=== PATIENT | female | born 1945 | race Caucasian/White ===

== ENCOUNTER → 2023-11-25 10:35 | Outpatient (REF) | payer OTHER, SELFPAY | LOC: HWRAD 10:35 | PROVIDERS: ATTENDING PHYSICIAN Internal Medicine; FAMILY PHYSICIAN Family Medicine | DX: I65.23 Occlusion and stenosis of bilateral carotid arteries (principal) | CPT/HCPCS: 93880 ==

== ENCOUNTER → 2023-12-03 13:30 | Outpatient (REF) | payer OTHER, SELFPAY | LOC: DHCBC MAIN 13:30 | PROVIDERS: ATTENDING PHYSICIAN Internal Medicine; FAMILY PHYSICIAN Family Medicine | DX: I25.10 Atherosclerotic heart disease of native coronary artery without angina pectoris (principal); I34.0 Nonrheumatic mitral (valve) insufficiency; I36.1 Nonrheumatic tricuspid (valve) insufficiency; I35.1 Nonrheumatic aortic (valve) insufficiency | CPT/HCPCS: 93306 ==

== ENCOUNTER 2024-04-17 16:31 | Emergency (ER) | payer OTHER, SELFPAY ==
[2024-04-17 16:38] VITALS: BP 194/97
[2024-04-17 17:33] VITALS: BMI 26.0
--- NOTE | 2024-04-17 17:33 | ED.MUSCINJ ---
HPI-Injury
General
Chief Complaint: Musculo-Skeletal Complaint
Source: patient
Exam Limitations: none
Time Seen by Provider: 04/17/24 17:17
Nursing documentation reviewed up to this point in time: agreed with
History of Present Illness-Injury
Initial Injury comments:
78 yo female from home 2 hours ago went to get out of bed, leaned on her left arm and felt sudden severe pain in left shoulder. Unable to lift the arm due to pain since. No recollection of overuse or recent injury.
Hx afib on Eliquis. NIDDM on Metformin
Past History
Past History
ED Past Medical History: Arrthythmia (afib on Eliquis), CAD, Cancer (Left breast), CHF, HTN, Hypercholesterolemia, NIDDM and Other (Pneumonia)
ED Past Surgical History: Cardiac, Cholecystectomy and Gynecological (L mastectomy)
Social History
Tobacco: Former smoker
Alcohol: Occasional
Personal:
Living: with family
Family History
Family History: CAD
Review of Systems
Review of Systems
Allergies reviewed?: Yes
All Other Systems: ROS reviewed and negative except as documented in HPI and ROS
Musculoskeletal: Reports other (pain left shoulder)
Skin: Reports no symptoms
Neurological: Denies weakness or numbness
Phy Exam
Physical Exam
Physical Exam:
GENERAL: No acute distress. A&Ox3.
CONSTITUTIONAL: Afebrile.
RESPIRATORY: Regular respirations, nonlabored, lungs clear.
CARDIOVASCULAR: Regular rate and rhythm, no murmurs, no rubs.
GI: Soft, nontender
MUSCULOSKELETAL: Neck, clavicle, distal left arm non tender. Tender to palpate over humeral head with mild swelling here. Significantly limited ROM due to pain. Distal N/V intact. Well perfused.
SKIN: Warm, dry, pink
PSYCH: Normal mood and affect. Well kept, interactive and appropriate
NEUROLOGIC: Awake, alert and oriented. No focal neurological deficits
Injury Course
Orders/Labs/Results
Orders:
Orders
04/17/24 17:24
Shoulder, Left, Trauma CR [CR Shoulder, Trauma - Left] Urgent
Comment:
Reason For Exam: pain no trauma
04/17/24 18:14
Sling Left-Treatment ONCE
04/17/24 18:22
Acetaminophen [Tylenol] 1,000 mg PO NOW STA
04/17/24 17:58
04/17/24 17:58
MDM/Problems Addressed
Differential Diagnosis Includes:
shoulder bursitis, osteoarthritis, sprain, fracture
MDM/Problems Addressed:
78 yo female from home 2 hours ago went to get out of bed, leaned on her left arm and felt sudden severe pain in left shoulder. Unable to lift the arm due to pain since. No recollection of overuse or recent injury.
Hx afib on Eliquis. NIDDM on Metformin
Xray left shoulder: Radiology report read: Acute transverse fracture of the surgical neck of the humerus with 1 mm lateral distraction 3 mm medial impaction of the distal fracture fragment
On Eliquis: no significant swelling or ecchymosis.
Sling applied, distal n/v intact.
Referred to orthopedics
*Critical Care Note
Total Time (30-74mins, 75-104mins- exclusive of procedures): Not Applicable
ED Attending Note
-
Portions of this chart may have been created with voice recognition software.� Occasional wrong word or��sound alike� substitutions may have occurred due to the inherent limitations of voice recognition software.
Discharge Plan
Departure
Patient Disposition: Home (Routine Discharge)
Date of Disposition: 04/17/24
Time of Disposition: 18:22
Patient with high blood pressure during this ER visit?: No
Condition: Good
Discharge Problem:
Closed fracture of left proximal humerus
Instructions: Upper Arm Fracture, How to Use a Shoulder Sling, Using Cold for Pain
Prescriptions:
No Action
nitroglycerin 0.4 MG tablet, sublingual
0.4 mg sublingual Q5M PRN (Reason: CHEST PAIN)
aspirin 81 MG tablet,chewable
81 mg PO DAILY Qty: 30 0RF
Rx Instructions:
One tab by mouth once daily.
metformin 500 MG tablet
500 mg PO HS
cetirizine 10 MG tablet
10 mg PO DAILY PRN (Reason: allergies)
acetaminophen [Tylenol Arthritis] 650 MG tablet extended release
650 mg PO Q8H PRN (Reason: pain)
atorvastatin 40 MG tablet
20 mg PO HS
metoprolol succinate 100 MG tablet extended release 24 hr
100 mg PO Q12H
Eliquis 5 MG tablet
5 mg PO Q12H
Referrals:
Pawan Salinas MD [Active] - Call in 1-3 days for appt
Kathrine Vogt MD [Family Provider] -
Activity Restrictions/Additional Instructions:
As we discussed, you fractured your upper arm. Keep the sling on until you see the orthopedic doctor.
Tylenol 1000 mg every 6 hours up to 3 times a day as needed for pain.
Call the orthopedic doctor's office Thursday a.m. and make next available appointment for 'fracture of proximal humerus.'
Interventions
Interventions:
*Risk Screen - Suicide Last Done: 04/17/24 19:35
*Neglect/Abuse Screening Last Done: 04/17/24 19:35
*Nursing Disposition Last Done: 04/17/24 19:35
ED-Musculoskeletal Assessment Last Done: 04/17/24 17:33
Discharge Date and Time
Discharge Date/Time: 04/17/24 19:36
Print Language: INDONESIAN
[2024-04-17] MEDS: TYLENOL 1000 MG PO (18:58)
[2024-04-17 19:21] VITALS: BP 130/91
== END 2024-04-17 19:36 | disposition home or self-care (01) ==
LOC: EMR 16:31
PROVIDERS: EMERGENCY PHYSICIAN Emergency Medicine; FAMILY PHYSICIAN Family Medicine
DX: S42.202A Unspecified fracture of upper end of left humerus, initial encounter for closed fracture (principal); X58.XXXA Exposure to other specified factors, initial encounter; I48.91 Unspecified atrial fibrillation; I25.10 Atherosclerotic heart disease of native coronary artery without angina pectoris; I11.0 Hypertensive heart disease with heart failure; I50.9 Heart failure, unspecified; E78.00 Pure hypercholesterolemia, unspecified; E11.9 Type 2 diabetes mellitus without complications; Z79.01 Long term (current) use of anticoagulants; Z82.49 Family history of ischemic heart disease and other diseases of the circulatory system; Z87.891 Personal history of nicotine dependence; Z90.12 Acquired absence of left breast and nipple; Z90.49 Acquired absence of other specified parts of digestive tract
CPT/HCPCS: 99283; 73030

== ENCOUNTER → 2024-05-20 13:20 | Outpatient (REF) | payer OTHER, SELFPAY | LOC: PAVMRI 13:20 | PROVIDERS: ATTENDING PHYSICIAN Orthopaedic Surgery; FAMILY PHYSICIAN Family Medicine | DX: S42.292A Other displaced fracture of upper end of left humerus, initial encounter for closed fracture (principal) | CPT/HCPCS: 73221 ==

== ENCOUNTER 2024-08-01 17:37 | Inpatient (IN) | payer OTHER, SELFPAY ==
[2024-08-01] VITALS (9 sets, daily range): BP systolic 96–133; BP diastolic 57–104; BMI 26.8; BMI 27.7
--- NOTE | 2024-08-01 11:54 | ED.GENMED ---
ED Provider Triage
<Mary Ann Deal, WARP PREPARER - Last Filed: 08/01/24 12:00>
-
Patient seen by provider in Triage?: Seen in Triage
Attestation: A medical screening examination has been initiated by a qualified medical provider. Based on the assessment performed at this time, it has been determined that an emergent medical condition may exist and the patient has been informed
that further medical evaluation and possible additional diagnostic testing may be needed.
HPI: 79-year-old female w h/o dementia, presents from home with nancy states she's sleeping more than usual, she's awful weak, she can't catch her breath, not eating much.
Denies chest pain or trouble breathing. stating trouble breathing yes please make sure
GENERAL: Alert , in no apparent distress
EYE: No visual abnormalities.
NECK: Trachea midline
ENT: No visible abnormalities.
LUNGS: No acute respiratory distress
NEUROLOGICAL: Alert and oriented
SKIN: Skin intact. No visible changes.
MUSCULOSKELETAL: Moving extremities normally
PSYCH: Normal and appropriate interaction.
This is a medical evaluation conducted in person to initiate diagnostic evaluation and provide initial therapeutics. Please see further documentation by the treating clinician.
History of Present Illness
<Mary Ann Deal, WARP PREPARER - Last Filed: 08/01/24 12:00>
General
Chief Complaint: Breathing Problem
Time Seen by Provider: 08/01/24 13:27
<Juvenal Pang DO - Last Filed: 08/01/24 20:36>
General
Source: patient, spouse and family
Exam Limitations: none
Nursing documentation reviewed up to this point in time: agreed with
History of Present Illness
History of Present Illness:
79-year-old female presents emergency department due to shortness of breath ongoing for 1 week. Patient denies any chest pain or discomfort. She denies any weight gain. She has been taking her Eliquis. Denies any bleeding.
Past History
<Mary Ann Deal, WARP PREPARER - Last Filed: 08/01/24 12:00>
Past History
ED Past Medical History: Arrthythmia (afib on Eliquis), CAD, Cancer (Left breast), CHF, HTN, Hypercholesterolemia, NIDDM and Other (Pneumonia)
ED Past Surgical History: Cardiac, Cholecystectomy and Gynecological (L mastectomy)
Social History
Tobacco: Former smoker
Alcohol: Occasional
Personal:
Living: with family
Family History
Family History: CAD
Review of Systems
<Juvenal Pang, DO - Last Filed: 08/01/24 20:36>
Review of Systems
Allergies reviewed?: Yes
All Other Systems: Not applicable
Constitutional: Denies fever
EENT: Reports no symptoms
Respiratory: Reports trouble breathing
Cardiac: Reports no symptoms
ABD/GI: Reports no symptoms
: Reports no symptoms
Musculoskeletal: Reports no symptoms
Skin: Reports no symptoms
Neurological: Reports weakness
Endocrine: Reports no symptoms
Hematologic/Lymphatic: Reports no symptoms
Psychiatric: Reports no symptoms
Phy Exam
<Juvenal Pang, DO - Last Filed: 08/01/24 20:36>
Physical Exam
Physical Exam:
Physical Exam
General: Chronic ill appearance
Neck: supple. no meningeal signs. normal posterior pharynx
Heart: s1/s2 tachycardia, irregular rhythm, no murmur. equal radial
pulses.
HEENT: Pupils equal round reactive to light, EOMI
Lungs: no acute respiratory distress. clear bilaterally
Abdomen: normal bowel sounds. not tender. no CVAT
Neuro: alert and oriented. no focal neurological deficits cranial nerves II through XII intact
Skin: no rash
Psychiatric: well kept. interactive and cooperative
Extremities: no edema. no calf tenderness. negative homans. good distal pulses
Scores
<Juvenal Pang, DO - Last Filed: 08/01/24 20:36>
Heart Failure Risk
Heart Failure Risk Score: Yes
History of Stroke or TIA: No
History of intubation for respiratory distress: No
Heart rate on ED arrival >/= 110: Yes
SaO2 <90% on arrival on room air: No
HR >/=110 during 3min walk test (or too ill to perform test): Yes
ECG has acute ischemic changes: No
Urea >/=12mmol/L (BUN 33.6mg/dL): Yes
Serum CO2>/=35mmol/L: No
Troponin I or T elevated to [place] Level (0.4mg/dL): No
NT-proBNP >/=5,000ng/L (5,000pg/ml): Yes
HF Risk Score: 4
Admission Status: HIGH RISK 26.1% Consider SNF treatment or admission to hospital
Course
<Mary Ann Deal, WARP PREPARER - Last Filed: 08/01/24 12:00>
Orders/Labs/Results
Orders:
Orders
08/01/24 11:35
ECG [Electrocardiogram (*1)] Urgent
Reason for Study: Tachycardia
EKG- Treatment ONCE
08/01/24 12:00
CR Chest - 2 Views Urgent
Comment:
Reason For Exam: SOB, weaknes
08/01/24 12:28
Complete Blood Count/With Diff Urgent
Comprehensive Metabolic Panel Urgent
Magnesium Urgent
Comment: MG ADDED ON BY FKLOOR 2:50PM 08-01-24
NT-proBNP Urgent
Troponin I Urgent
08/01/24 12:29
PT/INR [Prothrombin Time] Urgent
PTT Urgent
08/01/24 13:50
Cardiac Monitoring- Treatment ONCE
Dextrose 50%-Water [Dextrose 50% Syringe] 25 grams IV NOW STA
Insulin Human Regular [Novolin R] 3 units IV NOW STA
08/01/24 13:53
Bedside Glucose PRE IV Insulin- HyperK+ NOW
08/01/24 14:09
Venous Blood Gas Urgent
%Oxygen/Room Air: 100/RA
08/01/24 Dinner
1800 calorie (15 carb) Diabetic
At Your Request: Full Participation
08/01/24 15:23
Bedside Glucose POST IV Insulin- HyperK+ Q1HX2,Q2HX2
08/01/24 15:44
Sodium Bicarbonate 50 meq IV NOW STA
08/01/24 16:00
Glucose Urgent
Potassium Urgent
Comment: draw 2 hours after regular insulin IV administration
08/01/24 16:28
Bladder Scan As Directed
Follow Bladder Retention/Intermittent Cath Algorithm?: No
08/01/24 16:33
Urinalysis Reflex To Culture Urgent
08/01/24 16:38
Admit/Transfer Patient As Directed
Co-Sign Provider:
Level of Care: Inpatient admission
Assign to:: IMU- Intermediate Care
Physician / Group: Arnoldo
Diagnosis: Metabolic acidosis
Patient Condition: Fair
Reason for Hospitalization: Metabolic acidosis
Expected length of stay greater than two midnights?: Yes
ELOS- Estimated Length of Stay in days: 3
I certify the patient meets the requirements for IP care: Yes
08/01/24 16:41
Acetaminophen Urgent
B-Hydroxybutyrate Urgent
BMP [Basic Metabolic Panel] Urgent
CPK [Creatine Phosphokinase] Urgent
Lactate Level [Lactic Acid] Urgent
Salicylate Urgent
Troponin I Urgent
Insulin Human Regular [Novolin R] 10 units IV NOW STA
08/01/24 16:56
NEPHROLOGY CONSULT Urgent
Consulting Provider: Amadou De Guzman
Was physician already notified: Yes
Reason for consult: metabolic acidosis
08/01/24 17:00
Dextrose 5%/Water 1000 ml [D5w] 1,000 ml Sodium Bicarbonate 150 meq IV 200 mls/hr
08/01/24 17:01
Urine Creatinine Urgent
Urine Sodium Urgent
08/01/24 17:02
Urine Protein/Creat Ratio (Random) [Protein/Creat Ratio (Random)] Urgent
08/01/24 17:57
Dextrose 50%-Water [Dextrose 50% Syringe] 12.5 grams IV [id number] PRN
Dextrose 50%-Water [Dextrose 50% Syringe] 12.5 grams IV [id number] PRN
Diltiazem HCl [Cardizem] 5 mg IV Q6HPRN PRN
Glucagon [GlucaGen] 1 mg IM PRN PRN
Glucagon [GlucaGen] 1 mg IM PRN PRN
08/01/24 17:57
CARDIOLOGY CONSULT Routine
Consulting Provider: Erlin Crandall
Was physician already notified: Yes
NEPHROLOGY CONSULT Routine
Consulting Provider: Amadou De Guzman
Was physician already notified: Yes
Reason for consult: metabolic acidosis
Bedside Glucose Monitoring As Directed
Frequency: AC&HS
Additional Instructions:: Change to q6h if pt on TPN, tube feeding or not eating
Sequential Compression Device [Pneumatic Compression Sleeves] As Directed
Type: Knee high
DX Deep Vein Thrombosis Video Routine
08/02/24 06:00
Glycohemoglobin (HgbA1c) IN AM
Hepatitis A Antibody, Total IN AM
Hepatitis B Core Ab, IgM IN AM
Hepatitis B Core Ab, Total IN AM
Hepatitis B Surface Antibody IN AM
Hepatitis B Surface Antigen IN AM
Hepatitis C Antibody IN AM
08/02/24 07:30
Insulin Aspart Corrective Low [Novolog Flexpen-Low Resistance] See Protocol SC AC
Insulin Aspart Corrective Mod [Novolog Flexpen-Moderate Resistance] See Protocol SC AC
Abnormal Lab Results
08/01/24 08/01/24 08/01/24
12:28 12:29 13:59
RBC 3.89 L 10^6/uL
(4.20-5.40)
MCV 105.7 H fL
(81.0-99.0)
MCH 31.9 H pg
(27.0-31.0)
MCHC 30.2 L g/dL
(33.0-37.0)
RDW 15.8 H %
(11.5-14.5)
MPV 10.9 H fL
(7.4-10.4)
Absolute Lymphs (auto) 0.9 L 10^3/uL
(1.2-3.4)
Neutrophils % 78.7 H %
(42.2-75.2)
Lymphocytes % 13.5 L %
(20.5-51.1)
PT 51.9 H Sec
(11.4-14.6)
INR 5.92 H*
APTT 46.9 H Sec
(23.4-35.0)
VBG pH
VBG HCO3
Potassium 6.4 H* mmol/L
(3.5-5.1)
Chloride 109 H mmol/L
(98-107)
Carbon Dioxide 8 L* mmol/L
(22-30)
BUN 72 H mg/dl
(7-17)
Creatinine 2.9 H mg/dL
(0.6-1.0)
Glucose 214 H mg/dl
(70-99)
Lactic Acid
Magnesium 2.4 H mg/dl
(1.6-2.3)
Total Bilirubin 2.1 H mg/dl
(0.2-1.3)
AST 81 H U/L
(14-36)
ALT 74 H U/L
(0-35)
Alkaline Phosphatase 198 H U/L
(38-126)
Salicylates
Acetaminophen
POC Glucose 183 H mg/dl
(70-99)
08/01/24 08/01/24 08/01/24
14:09 14:54 16:00
RBC
MCV
MCH
MCHC
RDW
MPV
Absolute Lymphs (auto)
Neutrophils %
Lymphocytes %
PT
INR
APTT
VBG pH 7.09 L*
(7.32-7.43)
VBG HCO3 10.6 L mmol/L
(22-27)
Potassium 6.0 H mmol/L
(3.5-5.1)
Chloride
Carbon Dioxide
BUN
Creatinine
Glucose 225 H mg/dl
(70-99)
Lactic Acid
Magnesium
Total Bilirubin
AST
ALT
Alkaline Phosphatase
Salicylates
Acetaminophen
POC Glucose 227 H mg/dl
(70-99)
08/01/24
16:41
RBC
MCV
MCH
MCHC
RDW
MPV
Absolute Lymphs (auto)
Neutrophils %
Lymphocytes %
PT
INR
APTT
VBG pH
VBG HCO3
Potassium 5.9 H mmol/L
(3.5-5.1)
Chloride 109 H mmol/L
(98-107)
Carbon Dioxide 11 L* mmol/L
(22-30)
BUN 74 H mg/dl
(7-17)
Creatinine 2.9 H mg/dL
(0.6-1.0)
Glucose 211 H mg/dl
(70-99)
Lactic Acid 7.4 H* mmol/L
(0.7-2.0)
Magnesium
Total Bilirubin
AST
ALT
Alkaline Phosphatase
Salicylates < 1.0 L mg/dl
(2.0-20.0)
Acetaminophen < 10 L ug/ml
(10-30)
POC Glucose
08/01/24 12:28
08/01/24 16:41
Vital Signs
Initial and Last Documented VS:
Initial Vital Signs
Pulse Resp BP Pulse Ox
134 18 125/80 100
08/01/24 11:33 08/01/24 11:33 08/01/24 11:33 08/01/24 11:33
Last Documented Vital Signs
Temp Pulse Resp BP Pulse Ox
97.4 F 134 23 120/68 100
08/01/24 20:02 08/01/24 19:00 08/01/24 19:00 08/01/24 19:00 08/01/24 11:33
<Juvenal Pang, DO - Last Filed: 08/01/24 20:36>
Orders/Labs/Results
Orders:
Orders
08/01/24 11:35
ECG [Electrocardiogram (*1)] Urgent
Reason for Study: Tachycardia
EKG- Treatment ONCE
08/01/24 12:00
CR Chest - 2 Views Urgent
Comment:
Reason For Exam: SOB, weaknes
08/01/24 12:28
Complete Blood Count/With Diff Urgent
Comprehensive Metabolic Panel Urgent
Magnesium Urgent
Comment: MG ADDED ON BY FKLOOR 2:50PM 08-01-24
NT-proBNP Urgent
Troponin I Urgent
08/01/24 12:29
PT/INR [Prothrombin Time] Urgent
PTT Urgent
08/01/24 13:50
Cardiac Monitoring- Treatment ONCE
Dextrose 50%-Water [Dextrose 50% Syringe] 25 grams IV NOW STA
Insulin Human Regular [Novolin R] 3 units IV NOW STA
08/01/24 13:53
Bedside Glucose PRE IV Insulin- HyperK+ NOW
08/01/24 14:09
Venous Blood Gas Urgent
%Oxygen/Room Air: 100/RA
08/01/24 Dinner
1800 calorie (15 carb) Diabetic
At Your Request: Full Participation
08/01/24 15:23
Bedside Glucose POST IV Insulin- HyperK+ Q1HX2,Q2HX2
08/01/24 15:44
Sodium Bicarbonate 50 meq IV NOW STA
08/01/24 16:00
Glucose Urgent
Potassium Urgent
Comment: draw 2 hours after regular insulin IV administration
08/01/24 16:28
Bladder Scan As Directed
Follow Bladder Retention/Intermittent Cath Algorithm?: No
08/01/24 16:33
Urinalysis Reflex To Culture Urgent
08/01/24 16:38
Admit/Transfer Patient As Directed
Co-Sign Provider:
Level of Care: Inpatient admission
Assign to:: IMU- Intermediate Care
Physician / Group: Arnoldo
Diagnosis: Metabolic acidosis
Patient Condition: Fair
Reason for Hospitalization: Metabolic acidosis
Expected length of stay greater than two midnights?: Yes
ELOS- Estimated Length of Stay in days: 3
I certify the patient meets the requirements for IP care: Yes
08/01/24 16:41
Acetaminophen Urgent
B-Hydroxybutyrate Urgent
BMP [Basic Metabolic Panel] Urgent
CPK [Creatine Phosphokinase] Urgent
Lactate Level [Lactic Acid] Urgent
Salicylate Urgent
Troponin I Urgent
Insulin Human Regular [Novolin R] 10 units IV NOW STA
08/01/24 16:56
NEPHROLOGY CONSULT Urgent
Consulting Provider: Amadou De Guzman
Was physician already notified: Yes
Reason for consult: metabolic acidosis
08/01/24 17:00
Dextrose 5%/Water 1000 ml [D5w] 1,000 ml Sodium Bicarbonate 150 meq IV 200 mls/hr
08/01/24 17:01
Urine Creatinine Urgent
Urine Sodium Urgent
08/01/24 17:02
Urine Protein/Creat Ratio (Random) [Protein/Creat Ratio (Random)] Urgent
08/01/24 17:57
Dextrose 50%-Water [Dextrose 50% Syringe] 12.5 grams IV [id number] PRN
Dextrose 50%-Water [Dextrose 50% Syringe] 12.5 grams IV [id number] PRN
Diltiazem HCl [Cardizem] 5 mg IV Q6HPRN PRN
Glucagon [GlucaGen] 1 mg IM PRN PRN
Glucagon [GlucaGen] 1 mg IM PRN PRN
08/01/24 17:57
CARDIOLOGY CONSULT Routine
Consulting Provider: Erlin Crandall
Was physician already notified: Yes
NEPHROLOGY CONSULT Routine
Consulting Provider: Amadou De Guzman
Was physician already notified: Yes
Reason for consult: metabolic acidosis
Bedside Glucose Monitoring As Directed
Frequency: AC&HS
Additional Instructions:: Change to q6h if pt on TPN, tube feeding or not eating
Sequential Compression Device [Pneumatic Compression Sleeves] As Directed
Type: Knee high
DX Deep Vein Thrombosis Video Routine
08/02/24 06:00
Glycohemoglobin (HgbA1c) IN AM
Hepatitis A Antibody, Total IN AM
Hepatitis B Core Ab, IgM IN AM
Hepatitis B Core Ab, Total IN AM
Hepatitis B Surface Antibody IN AM
Hepatitis B Surface Antigen IN AM
Hepatitis C Antibody IN AM
08/02/24 07:30
Insulin Aspart Corrective Low [Novolog Flexpen-Low Resistance] See Protocol SC AC
Insulin Aspart Corrective Mod [Novolog Flexpen-Moderate Resistance] See Protocol SC AC
Abnormal Lab Results
08/01/24 08/01/24 08/01/24
12:28 12:29 13:59
RBC 3.89 L 10^6/uL
(4.20-5.40)
MCV 105.7 H fL
(81.0-99.0)
MCH 31.9 H pg
(27.0-31.0)
MCHC 30.2 L g/dL
(33.0-37.0)
RDW 15.8 H %
(11.5-14.5)
MPV 10.9 H fL
(7.4-10.4)
Absolute Lymphs (auto) 0.9 L 10^3/uL
(1.2-3.4)
Neutrophils % 78.7 H %
(42.2-75.2)
Lymphocytes % 13.5 L %
(20.5-51.1)
PT 51.9 H Sec
(11.4-14.6)
INR 5.92 H*
APTT 46.9 H Sec
(23.4-35.0)
VBG pH
VBG HCO3
Potassium 6.4 H* mmol/L
(3.5-5.1)
Chloride 109 H mmol/L
(98-107)
Carbon Dioxide 8 L* mmol/L
(22-30)
BUN 72 H mg/dl
(7-17)
Creatinine 2.9 H mg/dL
(0.6-1.0)
Glucose 214 H mg/dl
(70-99)
Lactic Acid
Magnesium 2.4 H mg/dl
(1.6-2.3)
Total Bilirubin 2.1 H mg/dl
(0.2-1.3)
AST 81 H U/L
(14-36)
ALT 74 H U/L
(0-35)
Alkaline Phosphatase 198 H U/L
(38-126)
Salicylates
Acetaminophen
POC Glucose 183 H mg/dl
(70-99)
24 24 08/01/24
14:09 14:54 16:00
RBC
MCV
MCH
MCHC
RDW
MPV
Absolute Lymphs (auto)
Neutrophils %
Lymphocytes %
PT
INR
APTT
VBG pH 7.09 L*
(7.32-7.43)
VBG HCO3 10.6 L mmol/L
(22-27)
Potassium 6.0 H mmol/L
(3.5-5.1)
Chloride
Carbon Dioxide
BUN
Creatinine
Glucose 225 H mg/dl
(70-99)
Lactic Acid
Magnesium
Total Bilirubin
AST
ALT
Alkaline Phosphatase
Salicylates
Acetaminophen
POC Glucose 227 H mg/dl
(70-99)
24
16:41
RBC
MCV
MCH
MCHC
RDW
MPV
Absolute Lymphs (auto)
Neutrophils %
Lymphocytes %
PT
INR
APTT
VBG pH
VBG HCO3
Potassium 5.9 H mmol/L
(3.5-5.1)
Chloride 109 H mmol/L
(98-107)
Carbon Dioxide 11 L* mmol/L
(22-30)
BUN 74 H mg/dl
(7-17)
Creatinine 2.9 H mg/dL
(0.6-1.0)
Glucose 211 H mg/dl
(70-99)
Lactic Acid 7.4 H* mmol/L
(0.7-2.0)
Magnesium
Total Bilirubin
AST
ALT
Alkaline Phosphatase
Salicylates < 1.0 L mg/dl
(2.0-20.0)
Acetaminophen < 10 L ug/ml
(10-30)
POC Glucose
08/01/24 12:28
08/01/24 16:41
Vital Signs
Initial and Last Documented VS:
Initial Vital Signs
Pulse Resp BP Pulse Ox
134 18 125/80 100
08/01/24 11:33 08/01/24 11:33 08/01/24 11:33 08/01/24 11:33
Last Documented Vital Signs
Temp Pulse Resp BP Pulse Ox
97.4 F 134 23 120/68 100
08/01/24 20:02 08/01/24 19:00 08/01/24 19:00 08/01/24 19:00 08/01/24 11:33
<Juvenal Pang, DO - Last Filed: 08/01/24 20:36>
MDM/Problems Addressed
Differential Diagnosis Includes:
Acute renal failure, hyperkalemia, CHF
MDM/Problems Addressed:
79-year-old female with acute renal failure, hyperkalemia, CHF exacerbation, metabolic acidosis, rapid atrial fibrillation. IV insulin ordered. Will withhold antidysrhythmic medication, and withhold Lasix at this time due to mild hypotension.
Admit to hospitalist.
Chronic conditions affecting care: HTN, CAD, Cardiomyopathy and Arrhythmia
Acute Exacerbation and/or Progression of Chronic Illness: HTN, CAD, Cardiomyopathy and Arrhythmia
<Juvenal Pang, DO - Last Filed: 08/01/24 20:36>
*Radiology
Radiology exam reviewed: preliminary read by ED provider (Chest x-ray shows increased interstitial markings)
*Pulse Oximetry
Patient hypoxic: no
*EKG
Interpreted by ED Provider?: Yes
EKG Intrepretation Date: 08/01/24
EKG Intrepretation Time: 11:39
Interpretation: abnormal
Comparison EKG: changes noted
Heart Rate: 125
Rate: tachycardiac
Rhythm: a-fib
Branch: normal axis
Interval: normal interval
QRS Pattern: normal QRS
Ischemia: non-specific ST changes
*Control Clerk Head Interpretation
Rate: tachycardiac
Interpretation: abnormal
Heart Rate: 120
Rhythm: a-fib
*Critical Care Note
Total Time (30-74mins, 75-104mins- exclusive of procedures): 30
comment:
Critical care statement: A total of 30 minutes of critical care time was provided for this patient. This includes management of unstable vital signs, evaluation of the patient at bedside, reviewing the patient's pertinent medical records, discussion
with consultants, review of old EKGs and review of pertinent medical records. This time with separate from time utilized to perform the aforementioned documented procedures
Data Reviewed
Review of Other/Old Records Reveals: Labs (K equals 4.8 on 03/15/2021, creatinine equals 1.2 on 03/15/2021)
Source: records
Further Testing Considered But Not Given:
CT chest considered, not indicated
<Juvenal Pang DO - Last Filed: 08/01/24 20:36>
Patient Management
Social determinants of health affecting care: Living situation and Strong social support
Discussion with other providers: Hospitalist
Escalation/DeEscalation of care consider admission/obs:
Admit indicated
ED Attending Note
<Mary Ann Deal NP - Last Filed: 08/01/24 12:00>
-
Portions of this chart may have been created with voice recognition software.� Occasional wrong word or��sound alike� substitutions may have occurred due to the inherent limitations of voice recognition software.
Discharge Plan
Departure
Patient Disposition: Admit
Date of Disposition: 08/01/24
Time of Disposition: 13:57
Admit to: IMU
Presentation/result/management discussed w/ accepting MD/DO: Hospitalist
Patient with high blood pressure during this ER visit?: No
Condition: Fair
Discharge Problem:
Acute kidney failure, unspecified, Atrial fibrillation with rapid ventricular response, Acute hyperkalemia, Metabolic acidosis
Interventions
Interventions:
*Risk Screen - Suicide Last Done: 08/01/24 12:24
*General Assessment Last Done: 08/01/24 12:24
*Neglect/Abuse Screening Last Done: 08/01/24 12:24
ED- Fall Risk Assessment Last Done: 08/01/24 13:03
*ED COVID-19 Vaccine History Last Done: 08/01/24 12:24
*Nursing Disposition Last Done: 08/01/24 19:31
ED- Cardiac Assessment Last Done: 08/01/24 12:24
ED- Pulmonary Assessment Last Done: 08/01/24 12:24
Discharge Date and Time
Discharge Date/Time: 08/01/24 19:41
[2024-08-01 12:44] LABS: % Basophils 0.2 % (0-2); % Eosinophils 0.2 % (0-6); % Immature Granulocytes 0.3 % (0-0.5); % Lymphocytes 13.5 % (20.5-51.1); % Monocytes 7.1 % (1.7-9.3); % Neutrophils 78.7 % (42.2-75.2); Absolute Lymphocytes 0.9 10^3/uL (1.2-3.4); Absolute Monocytes 0.5 10^3/uL (0.1-0.6); Absolute Neutrophils 5.2 10^3/uL (1.4-6.5); Hematocrit 41.1 % (37.0-47.0); Hemoglobin 12.4 g/dL (12.0-16.0); Mean Corp Hgb Conc. 30.2 g/dL (33.0-37.0); Mean Corpuscular Hgb 31.9 pg (27.0-31.0); Mean Corpuscular Volume 105.7 fL (81.0-99.0); Mean Platelet Volume 10.9 fL (7.4-10.4); Nucleated Red Blood Cells % 0.3 %; Platelet Count 242 10^3/uL (130-400); Red Blood Cell Count 3.89 10^6/uL (4.20-5.40); Red Cell Dist. Width 15.8 % (11.5-14.5); White Blood Cell Count 6.6 10^3/uL (4.8-10.8)
[2024-08-01 13:01] LABS: APTT 46.9 Sec (23.4-35.0); PT 51.9 Sec (11.4-14.6)
[2024-08-01 13:05] LABS: INR 5.92
[2024-08-01 13:10] LABS: NT-proBNP 14100 pg/ml; Troponin I 0.019 ng/ml
[2024-08-01 13:21] LABS: ALT (SGPT) 74 U/L (0-35); AST (SGOT) 81 U/L (14-36); Albumin 4.6 g/dl (3.5-5.0); Alkaline Phosphatase 198 U/L (38-126); Blood Urea Nitrogen 72 mg/dl (7-17); Calcium 9.9 mg/dl (8.4-10.2); Carbon Dioxide 8 mmol/L (22-30); Chloride 109 mmol/L (98-107); Estimated Creatinine Clearance 13 ml/min; Glucose 214 mg/dl (70-99); Potassium 6.4 mmol/L (3.5-5.1); Sodium 141 mmol/L (135-145); Total Bilirubin 2.1 mg/dl (0.2-1.3); Total Protein 6.9 g/dl (6.3-8.2); eGFR 15.77
[2024-08-01 14:01] LABS: Glucose - Point of Care 183 mg/dl (70-99)
[2024-08-01] MEDS: DEXTROSE 50% SYRINGE 25 GRAMS IV ×2 (14:03→22:34)
[2024-08-01] MEDS: NOVOLIN R 3 UNITS IV (14:03)
--- NOTE | 2024-08-01 14:13 | HPS.HSE ---
Addendum entered and electronically signed by Abhijit Mclaughlin MD 08/01/24 22:59:
Attending Addendum-
I performed a history and physical exam of the patient and discussed his management with the resident. I reviewed the resident's note and agree with the documented findings and plan of care CC/HPI- patient presents with one week of poor appetite
fatigue and SOB. 'I feel fine.' Seen with and daughter present. Full 12 point ROS reviewed and negative except as documented Exam- vitals reviewed in EMR GEN-NAD pale b/l scleral icterus heart irreg irreg tachy no rub lungs CTA B/L abd soft
LE trace edema
Plan:
# Severe AGMA
- admit to IMU
- VBG- AG , CO2 22-26 expected actual 35
- start bicarb gtt stat
- check LA, beta hydroxy-STAT
- c/s nephro
- check Tylenol level, salicylate, CPK
- possibly induced by MATY and metformin- hold metformin
# MATY on CKD 3b
- baseline @ 1.3
- check FENA
- renal and bladder US
- check UA
- start IVF
# Hyperkalemia
- from MATY
- insulin stat
- repeat BMP q 4
# Transaminitis
- check RUQ u/s
- trend
- hold statin check tylenol
# A fib with RVR
- cards c/s
- t/c start Cardizem gtt
- hold eliquis
- check ECHO
# Elevated INR
- liver disease?
- unclear etiology
- repeat in am
- vit k deficiency?
- check RUQ US
# Macrocytosis
- check vit b12 and folate TSH
# DM
- start SSI
- hold metformin
# CAD s/p CABG x 5 2000
# CS s/p CEA 2002
CODE DNR
Dispo lives with alone
Patient consented to discuss, was with and daughter, time spent explanation of advance directives, changes in health status, patient�s health care wishes if the patient becomes unable to make health decisions, goals of care, code status, and
prognosis- 16 minutes
Due to a high probability of clinically significant, life-threatening deterioration, the patient required a high level of preparedness to intervene emergently. I personally spent this critical care time directly and personally managing the patient.
This critical care time included obtaining a history; examining the patient; ordering and review of studies and STAT labs; arranging urgent treatment with development of a management plan; evaluation of patient's response to treatment; reassessment;
and, discussions with family and other providers.
This critical care time was performed to assess and manage the high probability of imminent, life-threatening deterioration that could result in multi-organ failure. Total time documented is exclusive of any additional time listed that was spent in
advance care planning discussion and separately billable procedures and treating other patients and teaching time.
Total critical care time: Approximately 40 minutes
Original Note:
Family Physician
-
Family Physician: Kathrine Vogt
Chief Complaint
-
Dyspnea
History of Present Illness
Ms. Natalya Guillory is an 79yoF pmh HFrEF (EF 40%), afib on eliquis, CAD, HTN, HLD, NIDDM being admitted for metabolic acidosis. She has been dyspneic for the past couple of weeks, but worse today. +fatigue, weakness, loss of appetite. Per her
, pt is sleeping more and is confused over the past couple of weeks compared to baseline. Pt able to tolerate a couple bites of a sandwich and soup.
Medical History
Past Medical History
Past Medical History: Reports Arrhythmia, CAD, Cancer (L breast), CHF, HTN, Hypercholesterolemia and NIDDM
Past Surgical History: Reports Cardiac, Cholecystectomy and Gynocological
Social History
Tobacco: Non-smoker
Alcohol: None
Drug: None
Personal:
Living: With Family
Family History
Family History: Not pertinent
Allergies / Home Medications
Allergies reflects when Allergies were last updated in [facility].
Home Medications with original date entered in [facility]
Allergy/Medication List:
Allergies
Allergy/AdvReac Type Severity Reaction Status Date / Time
No Known Allergies Allergy Verified 08/01/24 11:33
Home Medications
apixaban 5 mg tablet (Eliquis) 5 mg PO Q12 Blood Clot Prevention/Tx 02/28/21
metoprolol succinate 100 mg tablet,extended release 24 hr 100 mg PO Q12 Heart disease/condition 02/28/21
atorvastatin 20 mg tablet (Lipitor) 20 mg PO QPM High Cholesterol 08/01/24
metformin 500 mg tablet,extended release 24 hr 1,000 mg PO HS Diabetes 08/01/24
Review of Systems
-
History Source: Patient and Family
A 12 point ROS was completed and negative except as noted: Yes
Constitutional: Reports No Symptoms
EENT: Reports No Symptoms
Respiratory: Reports Trouble Breathing; Denies Cough or Hemoptysis
Cardiac: Reports No Symptoms
Abdomen/GI: Reports No Symptoms
: Reports No Symptoms
Musculoskeletal: Reports No Symptoms
Skin: Reports No Symptoms
Neurological: Reports No Symptoms
Endocrine: Reports No Symptoms
Physical Exam
Vital Signs
Vital Signs
Pulse Resp BP Pulse Ox
125 19 96/81 100
08/01/24 13:32 08/01/24 13:32 08/01/24 13:06 08/01/24 11:33
Physical Exam
General: Well Developed and Well Nourished
HEENT: NormoCephalic, Moist mucous membranes, Atraumatic and Other (scleral icterus)
Respiratory: Clear and Non Labored Respirations
Cardiac: S1/S2, Irregular Rhythm and Tachycardia
GI: Soft, Non Tender, Non Distended and Normal Bowel Sounds
Musculoskeletal: No Clubbing, No Cyanosis, Edema, Left Lower Extremity and Edema, Right Lower Extremity
Skin: Warm, Dry and Other (pallor)
Neuro: AO x 3
Psych: Calm
Laboratory Results
-
08/01/24 12:
Laboratory Results
PT 51.9 Sec (11.4-14.6) H 08/01/24 12:
INR 5.92 H* 08/01/24 12:
APTT 46.9 Sec (23.4-35.0) H 08/01/24 12:
Total Bilirubin 2.1 mg/dl (0.2-1.3) H 08/01/24 12:
AST 81 U/L (14-36) H 08/01/24 12:
ALT 74 U/L (0-35) H 08/01/24 12:
Alkaline Phosphatase 198 U/L (38-126) H 08/01/24 12:
Troponin I 0.019 ng/ml 08/01/24 12:28
Data Reviewed
-
Diagnostic Radiology: Image Personally Visualized and interpreted and Report Reviewed by me
Lab Data: Labs Reviewed by me
Impression/Plan
-
IMPRESSION:
Ms. Natalya Guillory is an 79yoF pmh HFrEF (EF 40%), afib on eliquis, CAD, HTN, HLD, NIDDM being admitted for metabolic acidosis.
PLAN:
Anion Gap Metabolic acidosis
MATY on acute kidney failure
Uremia
- ivf
- replete bicarb in d5w
- repeat bmp
- lactate, salicylates, acetaminophen, serum ketones
- ua, bladder scan, renal us pending
- nephrology following
Hyperkalemia
- K 6.4, repeat 5.9
- insulin bolus
- monitor
SOB
Respiratory alkalosis
- concern for compensating for metabolic acidosis per Winter's formula
- normal resp rate at this time
HFrEF exacerbation
CAD s/p CABG
- proBNP elevated
- troponins trending down, ischemia unlikely
- CXR: L pleural effusion
- echo: EF 40%
- clinically mildly hypervolemic, monitor for now
- daily weights, I's&O's
- cardiology following - repeat echo
Afib w RVR
- ECG: afib w RVR
- hold eliquis
- cardiology consulted - short acting metoprolol
Abnormal coagulation profile
- INR 5.92, Hb stable
- monitor for now as pt is not actively bleeding
Transaminitis
- hold statin
Type 2 DM
Overweight due to excess calories
- hold home metformin for concern of possible lactic acidosis
- ISS low
Diet: diabetic 1800cal
DVT ppx: SCDs
Code status: DNR
[2024-08-01 14:20] LABS: Venous Blood Gas B.E. -18.2 mmol/L (-4 to +4); Venous Blood Gas HCO3 10.6 mmol/L (22-27); Venous Blood Gas O2 Sat % 62.1 %; Venous Blood Gas pCO2 35 mmHg (35-48); Venous Blood Gas pO2 40 mmHg (30-50)
[2024-08-01 14:23] LABS: Venous Blood Gas pH 7.09 (7.32-7.43)
[2024-08-01 14:55] LABS: Glucose - Point of Care 227 mg/dl (70-99)
[2024-08-01 15:27] LABS: Magnesium 2.4 mg/dl (1.6-2.3)
[2024-08-01] MEDS: SODIUM BICARBONATE 50 MEQ IV (16:02)
[2024-08-01 16:27] LABS: Glucose 225 mg/dl (70-99)
[2024-08-01] MEDS: NOVOLIN R 10 UNITS IV ×2 (17:02→22:35)
--- NOTE | 2024-08-01 17:12 | CON.CAR ---
Addendum entered and electronically signed by Erlin Crandall MD 08/01/24 21:10:
I saw and examined the patient.
The HOUSEKEEPER HEAD's note was reviewed and I agree with the note.
Comment:
79 y/o female (follows with Dr. King) with paroxysmal atrial fibrillation/flutter on Eliquis, CAD s/p CABG, ICM EF 40%, and severe MR who presents with palpitations. Patient tells me that she presented to the hospital due to elevated HRs, however
other notes state that her urged her to come in due to dyspnea. She says that today she noticed elevated HRs but otherwise has felt like her normal self lately. She denies chest pain, dyspnea, leg swelling, presyncope, and syncope. She does
not think she has been confused lately and denies significant NSAID or Tylenol use. No recent illness. Reports compliance with meds. No bleeding issues with Eliquis. On exam she is a well-appearing older woman. She is oriented to place and self but
unable to tell me the president or what holiday is coming up. She has a fast, irregular rhythm with a 3/6 systolic murmur. Lungs are clear to auscultation bilaterally and she has no LE edema or JVD. Warm with strong peripheral pulses. Possible mild
scleral icterus. Labs are notable for VBG 7.09/35, lactate 7.4, K 6.4 -> 5.9, Cr 2.9 (bln 1.2), CO2 8 -> 11, INR 5.92, AST/ALT 81/74, alk phos 198, troponin 0.019 -> 0.016, BNP 14k. ECG shows afib w RVR, poor R wave progression, and anterolateral T
wave inversions. Last echo in our system (11/2023) showed EF 40%, severe MR, mod AR, PASP 45 mmHg.
Overall, 79 yo F with multiple severe laboratory abnormalities (acidosis, hyperkalemia, possible liver failure) who looks surprisingly well. Cardiology is consulted for afib w RVR.
#Atrial fibrillation w RVR
-Suspect that this is being driven by underlying illness
-She is hemodynamically stable and has no signs/symptoms of decompensated heart failure or cardiogenic shock, so can tolerate rate control
-Start metoprolol tartrate 25mg q6h. Uptitrate as tolerated for goal HR <120
-Hold Eliquis given INR 5.9
#Lactic acidosis
-Severe, threat to bodily function
-May be type B lactic acidosis given that she doesn't have other evidence of hypoperfusion. Possible sources include metformin or undiagnosed malignancy
-Continue to trend lactate and VBGs
-Supportive care per primary team with bicarb drip
#MATY with severe hyperkalemia
-Baseline Cr 1.2, Cr 2.9 on admission
-K improved s/p insulin
-Renal following
#Acute liver injury with elevated INR
-May meet criteria for MICHELLE given elevated INR. Unclear if she is encephalopathic given that we do not know her basline (if she is, it is very mild)
-Consider involving GI team
-Hold outpatient Eliquis as above
#Ischemic cardiomyopathy
-Warm and dry on exam. Last TTE with EF 40% and severe secondary MR
-Update echocardiogram tomorrow
-Monitor on telemetry
-Continue Metoprolol tartrate
-No other GDMT at this time due to MATY on CKD
-Hold statin for LFT abnormalities
Original Note:
Consultation
Consultation Request
Date/Time Consultation Requested: 08/01/241709
Date/Time Consultation Performed: 08/01/241711
Requesting Provider: Dr. Lombardi
Performing Provider: Lindsey ROLAND for Dr. Cota
Reason for Consultation: AFIB, CHF
Medical History
-
Chief Complaint: SOB
History of Present Illness:
79 y/o female (who follows with Dr. King) with PMH PAF on Eliquis, atrial flutter, ablation of both 02/2021, CAD s/p CABG x 5 2000, carotid stenosis with L CEA 2002, ICM EF 40%, severe MR, moderate AR, hypertension, dyslipidemia, PVC's, DM who is
here for evaluation of SOB x 2 days. She tells me her made her come in. She is in no distress at the time of my assessment. She is in AFIB with RVR. She sometimes feels palpitations. Severe lab abnormalities are noted including potassium
6.4, creatinine 2.9, INR 5.92, lactic acid 7.4. VBG with PH 7.09, AST/ALT elevated.
Past Medical History
Past Medical History: Arrhythmias, CAD, HTN, Hypercholesterolemia, Valvular Disease and Other (cardiomyopathy)
Social History
Tobacco: Former Smoker
Personal:
Living: With Family
Family History
Family History: Reviewed & Not Pertinent
Allergies / Home Medications
Allergy/AdvReac Type Severity Reaction Status Date / Time
No Known Allergies Allergy Verified 08/01/24 11:33
�Medication �Instructions �Recorded �Confirmed �Type
apixaban 5 mg tablet (Eliquis) 5 mg PO Q12 Blood Clot 02/28/21 08/01/24 History
Prevention/Tx
metoprolol succinate 100 mg 100 mg PO Q12 Heart 02/28/21 08/01/24 History
tablet,extended release 24 hr disease/condition
atorvastatin 20 mg tablet (Lipitor) 20 mg PO QPM High Cholesterol 08/01/24 08/01/24 History
metformin 500 mg tablet,extended 1,000 mg PO HS Diabetes 08/01/24 08/01/24 History
release 24 hr
Review of Systems
-
History Source: Patient
All other systems: Negative unless noted
Respiratory: Trouble Breathing
Physical Exam
Vital Signs
Pulse Resp BP Pulse Ox
117 23 128/91 100
08/01/24 16:45 08/01/24 16:45 08/01/24 16:01 08/01/24 11:33
Lab Results
08/01/24 12:28
Troponin I 0.019 ng/ml 08/01/24 12:28
Aws-R-Bomubxyvizf Pept 34965 pg/ml 08/01/24 12:28
Physical Exam
General: Well Developed, Well Nourished and No Apparent Distress
HEENT: Normocephalic and Anicteric
Respiratory: Clear and Non Labored Respirations
Cardiac: Irregular Rhythm and Peripheral Edema (mild BLE edema)
Musculoskeletal: Edema
Skin: Warm and Dry
Neuro: Awake and Alert
Psych: Calm
Impression / Plan
-
Hyperkalemia:
-treatment given in ER
-monitor closely
MATY:
-reports she is urinating as usual at home
-nephrology is consulted
Abnormal LFT's:
-w/u per primary
AFIB with RVR:
-in setting of acute illness
-hx ablation
-will start PO metoprolol- short-acting for now. Diltiazem not as good of a choice with her CM.
-on Eliquis, but held for INR 5.92. Hgb is stable.
ICM EF 40%:
-update echo
-metoprolol as above- then long-acting again when tolerated
-no other GDMT with MATY for now
-she does not appear obviously volume overloaded to my assessment despite elevated BNP (weight stable, lungs clear, minimal BLE edema)
Severe MR, moderate AR:
-update echo
CAD with hx CABG:
-stable without CP
Data Reviewed
-
EKG: Tracing Personally Visualized and interpreted (AFIB with RVR 125 BPM, nonspecific ST abnormality)
Radiology: Report Reviewed by me (CXR: Small left pleural effusion)
Medical Tests (Nuc Med, Echo etc): Report Reviewed by me (Echo 12/03/23: Dilated LV with severe concentric LVH, mild global hypokinesis and mildly reduced LV systolic function EF 40%. Normal RV size with mildly reduced systolic function. Severe LA
dilation. Mild RA dilation. Central MR, probably severe, functional. Moderate AR. Mild PH. PASP 45 mmHg.)
Labs: Labs Reviewed by me
[2024-08-01 17:21] LABS: Lactic Acid 7.4 mmol/L (0.7-2.0)
[2024-08-01 17:22] LABS: Acetaminophen < 10 ug/ml (10-30); Blood Urea Nitrogen 74 mg/dl (7-17); Calcium 9.3 mg/dl (8.4-10.2); Carbon Dioxide 11 mmol/L (22-30); Chloride 109 mmol/L (98-107); Creatine Phosphokinase 35 U/L (30-135); Estimated Creatinine Clearance 13 ml/min; Glucose 211 mg/dl (70-99); Potassium 5.9 mmol/L (3.5-5.1); Salicylate < 1.0 mg/dl (2.0-20.0); Sodium 140 mmol/L (135-145); eGFR 15.77
[2024-08-01 17:24] LABS: B-Hydroxybutyrate 0.27 mmol/L (0.02-0.27)
[2024-08-01] MEDS: SODIUM BICARBONATE 1150 MEQ IV ×2 (17:28→23:57)
[2024-08-01 17:38] LABS: Troponin I 0.016 ng/ml
[2024-08-01 17:50] LABS: Glucose - Point of Care 172 mg/dl (70-99)
[2024-08-01] MEDS: LOPRESSOR 25 MG PO ×2 (18:34→23:57)
--- NOTE | 2024-08-01 19:03 | W.CON.NEPH ---
Consultation
-
Date/Time Consultation Requested: 08/01/24 16:56
Date/Time Consultation Performed: 08/01/24 19:00
Requesting Provider: dr Lombardi
Performing Provider: Dr. Amadou De Guzman
Reason for Consultation: acute kidney injury
Medical History
-
Chief Complaint: acute kidney injury
History of Present Illness:
79 y/o female (who follows with Dr. King) with PMH PAF on Eliquis, atrial flutter, ablation of both 02/2021, CAD s/p CABG x 5 2000, carotid stenosis with L CEA 2002, ICM EF 40%, severe MR, moderate AR, hypertension, dyslipidemia, PVC's, DM who is
here for evaluation of SOB x 2 days.
renal consult for acute kidney injury/hyperkalemia/ acute metabolic acidosis
patient is awake and alert she denies any recent NSAID use positive decreased PO intake no recent sick contacts or change medications.
She is found to have atrial fibrillation with rapid ventricular response
she otherwise has no chest pain shortness of breath nausea or vomiting she has urinated
Past Medical History
PAF on Eliquis, atrial flutter, ablation of both 02/2021, CAD s/p CABG x 5 2000, carotid stenosis with L CEA 2002, ICM EF 40%, severe MR, moderate AR, hypertension, dyslipidemia, PVC's, DM
Social History
non-smoker no alcohol use
Family History
no renal disease
Allergies / Home Medications
Allergy/AdvReac Type Severity Reaction Status Date / Time
No Known Allergies Allergy Verified 08/01/24 11:33
�Medication �Instructions �Recorded �Confirmed �Type
apixaban 5 mg tablet (Eliquis) 5 mg PO Q12 Blood Clot 02/28/21 08/01/24 History
Prevention/Tx
metoprolol succinate 100 mg 100 mg PO Q12 Heart 02/28/21 08/01/24 History
tablet,extended release 24 hr disease/condition
atorvastatin 20 mg tablet (Lipitor) 20 mg PO QPM High Cholesterol 08/01/24 08/01/24 History
metformin 500 mg tablet,extended 1,000 mg PO HS Diabetes 08/01/24 08/01/24 History
release 24 hr
Review of Systems
-
chest palpitations
All other systems: Negative unless noted
Physical Exam
Vital Signs
Vital Signs
Pulse Resp BP Pulse Ox
126 16 129/57 100
08/01/24 18:34 08/01/24 18:15 08/01/24 18:34 08/01/24 11:33
Lab Results
WBC 6.6 10^3/uL (4.8-10.8) 08/01/24 12:28
RBC 3.89 10^6/uL (4.20-5.40) L 08/01/24 12:28
Hgb 12.4 g/dL (12.0-16.0) 08/01/24 12:28
Hct 41.1 % (37.0-47.0) 08/01/24 12:28
Plt Count 242 10^3/uL (130-400) 08/01/24 12:28
Sodium 140 mmol/L (135-145) 08/01/24 16:41
Potassium 5.9 mmol/L (3.5-5.1) H 08/01/24 16:41
Chloride 109 mmol/L (98-107) H 08/01/24 16:41
Carbon Dioxide 11 mmol/L (22-30) L* 08/01/24 16:41
BUN 74 mg/dl (7-17) H 08/01/24 16:41
Creatinine 2.9 mg/dL (0.6-1.0) H 08/01/24 16:41
eGFR 15.77 08/01/24 16:41
Glucose 211 mg/dl (70-99) H 08/01/24 16:41
Calcium 9.3 mg/dl (8.4-10.2) 08/01/24 16:41
Iji-E-Ibwwbfettfp Pept 20850 pg/ml 08/01/24 12:28
Albumin 4.6 g/dl (3.5-5.0) 08/01/24 12:28
Physical Exam
General: Awake, Alert and Oriented
HEENT: Ear/Nose Intact and Other
Respiratory: Clear
Cardiac: S1/S2 and Other ( irregular )
Abdomen: Soft
Musculoskeletal: No Clubbing and No Edema
Skin: No Rash and No Bruising
Neuro: Nonfocal/Grossly Intact
Hematologic/Lymphatic: No Cervical Lymphadenopathy
Psych: Mood/afflect pleasant and Insight/judgement good
Data Reviewed
-
Radiology: Image Personally Visualized and interpreted ( no acute pathology no infiltrate no civilization)
Labs: Labs Reviewed by me (cr 2.9 potassium six and bicarbonate 11)
Assessment/Plan
-
79 y/o female with PMH PAF on Eliquis, atrial flutter, ablation of both 02/2021, CAD s/p CABG x 5 2000, carotid stenosis with L CEA 2002, ICM EF 40%, severe MR, moderate AR, hypertension, dyslipidemia, PVC's, DM who is here for evaluation of SOB x 2
days. with uncontrolled atrial fibrillation and RVR acute kidney injury the creatinine of 2.9 BUN 74 bicarbonate 11 and a potassium of six
acute kidney injury admitting creatinine 2.9
acute metabolic acidosis bicarbonate 8> pH 7.09
hyperkalemia potassium 6.4> repeat 5.9
atrial fibrillation with RVR
ischemic cardiomyopathy with ejection fraction 40% November 2023
transaminase
lactic acidosis
plan:
acuity hemodynamically mediated hypotension and atrial fibrillation with RVR
agree with sodium bicarbonate drip
renal imaging ordered
renal indices pending
given insulin 10 units IV for temporizing measures of hyperkalemia
monitor for a urine output
no acute need for dialysis at at this time that repeat laboratories this evening
[2024-08-01 20:09] LABS: Glucose - Point of Care 181 mg/dl (70-99)
[2024-08-01 21:19] LABS: ALT (SGPT) 65 U/L (0-35); AST (SGOT) 99 U/L (14-36); Albumin 3.9 g/dl (3.5-5.0); Alkaline Phosphatase 154 U/L (38-126); Blood Urea Nitrogen 76 mg/dl (7-17); Calcium 9.5 mg/dl (8.4-10.2); Carbon Dioxide 13 mmol/L (22-30); Chloride 106 mmol/L (98-107); Estimated Creatinine Clearance 13 ml/min; Glucose 196 mg/dl (70-99); Potassium 5.7 mmol/L (3.5-5.1); Sodium 139 mmol/L (135-145); Total Bilirubin 1.9 mg/dl (0.2-1.3); Total Protein 6.2 g/dl (6.3-8.2); eGFR 16.45
--- NOTE | 2024-08-01 21:21 | PTCARENOTE ---
[id number]: Patient received in room 3365 from ED RN. Handoff completed. The patient transferred herself from the stretcher to her ICU bed. AAOx3 and able to make her needs known. Denies pain. Plan of care for the night reviewed with the patient. The
patient is in Afib RVR with HR at 110-120s. Palpable pulses. Afebrile. Clear breath sounds. SpO2 at 98% on room air. +BS. Abdomen is obese. Pt declined needing to void on arrival. Bladder scanning protocol reviewed with the patient. The patient has
a small scab to her right nare, and a nichelle sized bruise to her right upper thigh. Otherwise, skin is intact. Pneumatic compression sleeves applied. Pt oriented to the unit. Labs drawn and sent. Bed in the lowest position. Call feliciano and personal
belongings are within reach.
[2024-08-01] MEDS: LOPRESSOR 5 MG IV (22:44)
--- NOTE | 2024-08-01 22:53 | PTCARENOTE ---
: Patient remained in Afib RVR with HR between 120s-130s. Natalya Monterroso MP paged and made aware. WIRELESS STORE MANAGER updated on the pt's resulted labs. Dextrose 50% water 25 grams and insulin 10 units IV ordered for potassium and metoprolol 5 mg IV for HR.
[2024-08-01 23:33] LABS: Glucose - Point of Care 275 mg/dl (70-99)
[2024-08-02] VITALS (19 sets, daily range): BP systolic 63–155; BP diastolic 41–136; BMI 28.2
[2024-08-02 00:45] LABS: Glucose - Point of Care 292 mg/dl (70-99)
[2024-08-02 01:10] LABS: Lactic Acid 5.3 mmol/L (0.7-2.0)
[2024-08-02 01:19] LABS: Blood Urea Nitrogen 78 mg/dl (7-17); Calcium 8.8 mg/dl (8.4-10.2); Carbon Dioxide 18 mmol/L (22-30); Chloride 102 mmol/L (98-107); Estimated Creatinine Clearance 13 ml/min; Glucose 283 mg/dl (70-99); Potassium 4.9 mmol/L (3.5-5.1); Sodium 136 mmol/L (135-145); eGFR 16.45
--- NOTE | 2024-08-02 01:40 | W.PN.UPDATE ---
Update Note
Progress Note Update
Patient HR continues elevated 130-140 atrial fibrillation with no response to Lopressor po or IV. Amiodorone IV added. Renewed Dextrose with HCO3 IVF. AG improving from 20-16. K+WNL, Glucose readings in 200s. Ordered Levophed per protocol for
systolic 80s but this improved so was never started but remains available. Lactic acid continues to trend down.
[2024-08-02] MEDS: CORDARONE 103 MG IV (01:41)
[2024-08-02] MEDS: CORDARONE 518 MG IV ×2 (02:00→20:29)
[2024-08-02 03:07] LABS: Glucose - Point of Care 319 mg/dl (70-99)
[2024-08-02] MEDS: NOVOLOG FLEXPEN 5 UNITS SC (03:19)
[2024-08-02] MEDS: NSS 1000 IV (06:04)
[2024-08-02 06:41] LABS: Hematocrit 34.6 % (37.0-47.0); Hemoglobin 11.1 g/dL (12.0-16.0); Mean Corp Hgb Conc. 32.1 g/dL (33.0-37.0); Mean Corpuscular Hgb 31.9 pg (27.0-31.0); Mean Corpuscular Volume 99.4 fL (81.0-99.0); Mean Platelet Volume 11.6 fL (7.4-10.4); Platelet Count 221 10^3/uL (130-400); Red Blood Cell Count 3.48 10^6/uL (4.20-5.40); Red Cell Dist. Width 15.6 % (11.5-14.5); White Blood Cell Count 6.7 10^3/uL (4.8-10.8)
--- NOTE | 2024-08-02 06:59 | PTCARENOTE ---
[id number]: Patient remained in Afib RVR with Hr in the 130s. Natalya Monterroso NP paged and made aware. Amiodarone bolus and gtt ordered. Assisted the patient to the bathroom. Gait steady. Patient denies sob, dizziness, lightheadedness with
ambulation. Patient voided a scant amount of urine in the hat. Patient bladder scanned for 46 ml. However, the bladder felt full and distended. Bladder appears to be pocketed and scanner is unable to pickup bladder in its entirety. The patient
vocalized needing to void. Patient straight cath using a 15 urdu catheter. No urine noted. Natalya Monterroso NP at the bedside. Woodward catheter ordered by BUSINESS LIAISON OFFICER for retention and kidney injury. Upon woodward catheter insertion, only 5 mLs of urine was
noted. The patient tolerated woodward insertion.
[2024-08-02 07:24] LABS: INR 6.85
[2024-08-02 07:31] LABS: ALT (SGPT) 79 U/L (0-35); AST (SGOT) 121 U/L (14-36); Alkaline Phosphatase 172 U/L (38-126); Blood Urea Nitrogen 69 mg/dl (7-17); Calcium 8.8 mg/dl (8.4-10.2); Chloride 95 mmol/L (98-107); Estimated Creatinine Clearance 14 ml/min; Magnesium 2.2 mg/dl (1.6-2.3); Potassium 4.9 mmol/L (3.5-5.1); Sodium 132 mmol/L (135-145); Total Bilirubin 2.1 mg/dl (0.2-1.3); Total Protein 6.2 g/dl (6.3-8.2); eGFR 17.19
[2024-08-02 07:32] LABS: Carbon Dioxide 11 mmol/L (22-30); Glucose 474 mg/dl (70-99)
[2024-08-02 07:36] LABS: Hepatitis B Surface Antigen Negative (Negative)
[2024-08-02 07:53] LABS: Hepatitis A Antibody, Total Negative (Negative); Hepatitis B Core Ab, Total Negative (Negative); Hepatitis C Antibody Negative (Negative)
[2024-08-02 08:09] LABS: Folate 18.1 ng/ml (2.76-20); Vitamin B12 > 1000 pg/ml (239-931)
--- NOTE | 2024-08-02 08:25 | W.PN.HOSP.TC ---
Addendum entered and electronically signed by Abhijit Mclaughlin MD 08/02/24 23:09:
Attending Addendum-
I saw and evaluated the patient. I reviewed the resident�s note and agree with findings and plan as documented in the resident�s note. Sub: feels weak and SOB. 'id like you to talk about that code status with my daughter.' Full 12 point ROS reviewed
and negative except as documented Exam- vitals reviewed in EMR GEN-NAD pale b/l scleral icterus heart irreg irreg tachy no rub lungs decreased BS @ bases LEFT>Right abd soft LE trace edema
Plan:
# Severe AGMA
- cont care in IMU
- cont bicarb gtt
- worsening LA
- close gap with insulin
- nephro input appreciated
- possibly induced by MATY and metformin- hold metformin
- HD entertained- patient and family not in agreement
- hospice
- EOL care
- poor prognosis
# End stage HFrEF
- ECHO 08/02-Severely reduced left ventricular systolic function. LVEF 10-15%.
Severe global hypokinesis with sparing of the basal inferolateral wall and the
apical anterior and inferior hernández.
- poor prognosis
- c/s hospice
- END of life care
# MATY on CKD 3b
- baseline @ 1.3
- woodward placed
- poor prog
# Hyperkalemia
- resolved
- insulin given
# Transaminitis/ Acute Liver Failure
- INR increased
- vit k x 1
- cardio hepato renal syndrome
- poor prog
# A fib with RVR
- cards c/s
- t/c start Cardizem gtt
- hold eliquis
- check ECHO
# DM
- start SSI
- hold metformin
# CAD s/p CABG x 5 2000
# CS s/p CEA 2002
CODE DNR
Dispo lives with alone
ACP
Patient consented to discuss, d/w daughter and , time spent explanation of advance directives, changes in health status, patient�s health care wishes if the patient becomes unable to make health decisions, goals of care, code status, and
prognosis- patient would not want aggressive measures including HD pressors etc wants to go home on hospice-20 minutes
Time spent coordinating care, review of plan of care with resident, personally reviewed previous records in EMR, med rec, labs, radiology, d/w nursing, cards, pulm, family total time documented is exclusive of any additional time listed that was
spent in advance care planning discussion -�59 minutes
Original Note:
Today's Communication/Plan
-
.
Assessment / Plan
Assessment / Plan
Ms. Natalya Guillory is an 79yoF pmh HFrEF (EF 10-15%), afib on eliquis, CAD, HTN, HLD, NIDDM, CKD stage 3b being admitted for metabolic acidosis.
Anion Gap Metabolic acidosis
MATY on CKD stage 3b
Uremia
Lactic acidosis
- ivf
- replete bicarb
- repeat bmp
- lactate rising
- salicylates, acetaminophen, b-hydroxybutyrate, CK wnl
- FeNa 0.3% likely prerenal cause of MATY
- CT CAP: moderate L pleural effusion, abdominal ascites, moderate anasarca
- MATY likely due to fluid overload in setting of CKD and multiorgan system failure
- nephrology following
Anuria
- woodward catheter placed
- pt and family do not wish to pursue dialysis at this time
SOB
Respiratory alkalosis
- concern for inadequate compensating for metabolic acidosis per Winter's formula
- normal resp rate at this time
HFrEF exacerbation
CAD s/p CABG
- proBNP elevated
- troponins trending down, ischemia unlikely
- CXR: L pleural effusion
- echo: EF 10-15%, severe global hypokinesis, mod to severe MR, mod TR, RV dysfunction
- volume overloaded
- keep K>4, Mg>2
- daily weights, I's&O's
- cardiology following - repeat echo
Afib w RVR
- ECG: afib w RVR
- hold eliquis
- cardiology consulted - amiodarone in setting of hypotension
Hypotension
- levophed for MAP <65
- dobutamine added by cardiology
Abnormal coagulation profile
Transaminitis
Anemia
- INR worsening, Hb 11.1 dropping
- replete vitamin K
- hold statin
- tylenol level wnl
- ggt, direct bili
Type 2 DM
Overweight due to excess calories
- hold home metformin
- ISS low
- HbA1c 7.9
Macrocytosis
- vit b12 >1000
- folate wnl
- tsh 5.00, free t4 pending
Hyperkalemia
- resolved w insulin
Hyponatremia
- resolved
Elevated TSH
- tsh 5.00
- TSH likely elevated as pt is acutely ill, less likely that she has hypothyroidism
Diet: diabetic 1800cal
DVT ppx: SCDs
Code status: DNR
Anticipated Discharge: > 48 hours
Subjective/Interval History
-
Date of Service: August 02, 2024
Ms. Natalya Guillory is an 79yoF pmh HFrEF (EF 10-15%), afib on eliquis, CAD, HTN, HLD, NIDDM, CKD stage 3b being admitted for metabolic acidosis. Upgraded to ICU overnight.
Objective Data
-
Labs:
Laboratory Results
08/01/24 08/02/24 08/02/24
20:28 00:45 06:27
WBC 6.7
Hgb 11.1 L
Hct 34.6 L
Plt Count 221
PT 58.0 H
INR 6.85 H*
Sodium 139 136 132 L
Potassium 5.7 H 4.9 4.9
Chloride 106 102 95 L
Carbon Dioxide 13 L* 18 L 11 L*
BUN 76 H 78 H 69 H
Creatinine 2.8 H 2.8 H 2.7 H
Glucose 196 H 283 H 474 H*
Calcium 9.5 8.8 8.8
Total Bilirubin 1.9 H 2.1 H
AST 99 H 121 H
ALT 65 H 79 H
Alkaline Phosphatase 154 H 172 H
Vital Signs:
Vital Signs
Temp Pulse Resp BP Pulse Ox
96.5 F L 138 23 112/91 98
08/02/24 08:18 08/01/24 23:57 08/01/24 19:00 08/01/24 23:57 08/01/24 20:00
I&O
08/01/24 08/02/24 08/03/24
06:59 06:59 06:59
Intake Total
Balance
Review of Systems
-
History Source: Patient
Constitutional: Reports No Appetite and Fatigue
EENT: Reports No Symptoms Reported
Respiratory: Reports Trouble Breathing; Denies Cough
Cardiac: Reports No Symptoms
Abdomen/GI: Reports No Symptoms
Genitourinary: Reports No Symptoms
Musculoskeletal: Reports No Symptoms
Skin: Reports No Symptoms
Physical Exam
-
General: Appears in Distress
HEENT: Normocephalic, Atraumatic, Moist Mucous Membranes and Other (scleral icterus)
Respiratory: Clear to Auscultation and Non Labored Respirations
Cardiac: S1/S2 and Irregular Rhythm; Negative Murmur, Rub or Gallop
GI: Soft, Nontender, Nondistended and Normal Bowel Sounds
Musculoskeletal: No Clubbing, Cyanosis, Edema, Right Lower Extrem and Edema, Left Lower Extrem
Skin: Jaundice and Other (cool)
Neuro: Awake
Psych: Confused
[2024-08-02] MEDS: NOVOLOG FLEXPEN-LOW RESISTANCE 4 UNITS SC (08:27)
--- NOTE | 2024-08-02 08:30 | CON.INTV ---
Consultation
Consultation Request
Date/Time Consultation Requested: 08/01/2024
Date/Time Consultation Performed: 08/02/2024 - 828
Requesting Provider: Dr. Mclaughlin
Performing Provider: Dr. Houston
Reason for Consultation: Lactic acidosis/MATY
Medical History
-
Chief Complaint: Worsening SOB x 1 week
History of Present Illness:
79-year-old female with a past medical history of CAD s/p CABG, paroxysmal A-fib on Eliquis, ischemic cardiomyopathy, hypertension, history of PVCs, bilateral carotid artery stenosis with history of endarterectomy, valvular heart disease with MR,
TR, and AI, and DM type II who presents with worsening shortness of breath for 1 week. She has been endorsing worsening fatigue, weakness and loss of appetite with reduced PO intake. Patient's been sleeping more and has been confused for the last
few weeks as per the patient's . In the ER she was tachycardic to 134 (A-fib with RVR), breathing at 18 breaths/min, BP 125/80 and saturating 100% on room air. Labs showed Hb 12.4, WBC 6.6, INR 5.92, blood gas with pH 7.09, pCO2 35,
creatinine 2.9, potassium 6.4, serum bicarbonate level 8, BUN 72, glucose 214, lactate 7.4, T. bili 2.1, proBNP 14,100, troponin 0.019, and urinalysis with +1 leukocyte esterase with >100 urine WBC with >30 urine squamous epithelial cells. Urine
culture was collected. CXR showed a left-sided pleural effusion. She was given 10 units regular insulin in the ER, 1 amp of sodium bicarb, 1 amp of D50 and started on a bicarbonate drip and admitted to the ICU for further care. Protective Clothing Issuer
services consulted for additional management/recommendations.
Patient was seen and evaluated today at bedside. She is awake, alert and answering questions appropriately. Heart rate 88, BP 90/64 and saturating 95% on room air. She currently denies SOB at rest, chest pain, BENAVIDEZ, abdominal pain, nausea, fevers
or chills.
PMHx: CAD s/p CABG, ICM, hypertension, history of PVCs, DM type II, A-fib on Eliquis, left-sided breast cancer s/p mastectomy, chronic HFmrEF (LVEF 40% via TTE from 12/03/2023)
PSHx: Cataract extraction, cholecystectomy, left sided mastectomy, carotid endarterectomy, CABG, ablation, left L5-S1 ILESI
Past Medical History
Past Medical History: Other (Above as per HPI)
Past Surgical History: Other (Above as per HPI)
Social History
Tobacco: Former Smoker
Alcohol: None
Drug: None
Personal:
Living: With Family
Family History
Family History: CAD (Father (history of KS); mother (history of KS); Brother: History of fatal KS in his seventh decade)
Allergies / Home Medications
Allergies
Allergy/AdvReac Type Severity Reaction Status Date / Time
No Known Allergies Allergy Verified 08/01/24 11:33
Home Medications
�Medication �Instructions �Recorded �Confirmed �Last Taken �Type
apixaban 5 mg tablet (Eliquis) 5 mg PO Q12 Blood Clot 02/28/21 08/01/24 08/01/24 History
Prevention/Tx
metoprolol succinate 100 mg 100 mg PO Q12 Heart 02/28/21 08/01/24 08/01/24 History
tablet,extended release 24 hr disease/condition
atorvastatin 20 mg tablet (Lipitor) 20 mg PO QPM High Cholesterol 08/01/24 08/01/24 07/31/24 History
metformin 500 mg tablet,extended 1,000 mg PO HS Diabetes 08/01/24 08/01/24 07/31/24 History
release 24 hr
Review of Systems
-
History Source: Patient
All other systems: Negative unless noted
Vitals / Labs / Diagnostic Testing
Vital Signs
Temp Pulse Resp BP Pulse Ox
96.5 F L 138 23 112/91 98
08/02/24 08:18 08/01/24 23:57 08/01/24 19:00 08/01/24 23:57 08/01/24 20:00
Lab Data
08/02/24 06:27
08/02/24 06:27
Laboratory Results
08/01/24 08/02/24
12:29 06:27
PT 51.9 H 58.0 H
INR 5.92 H* 6.85 H*
APTT 46.9 H
Diagnostic Testing:
Physical Exam
-
HEENT: Normocephalic and Anicteric
Cardiovascular: Irregular Rhythm and Peripheral Edema (negative)
Respiratory: Wheeze (negative), Rales (Bilateral (L >R)), Rhonchi (negative) and Non-Labored Respirations
GI: Soft, Non Distended, Non Tender and Normal Bowel Sounds
Neurology: AO x 3 and Tremors (negative)
Skin: Warm and Dry
General: Respiratory Distress (negative), Comfortable, Fever (negative) and Chills (negative)
Assessment
-
Assessment: 79-year-old female with a past medical history of CAD s/p CABG, paroxysmal A-fib on Eliquis, ischemic cardiomyopathy, hypertension, history of PVCs, bilateral carotid artery stenosis with history of endarterectomy, valvular heart
disease with MR, TR, and AI, and DM type II who presents with worsening shortness of breath for 1 week. She has been endorsing worsening fatigue, weakness and loss of appetite with reduced PO intake. Patient's been sleeping more and has been
confused for the last few weeks as per the patient's . In the ER she was tachycardic to 134 (A-fib with RVR), breathing at 18 breaths/min, BP 125/80 and saturating 100% on room air. Labs showed Hb 12.4, WBC 6.6, INR 5.92, blood gas with pH
7.09, pCO2 35, creatinine 2.9, potassium 6.4, serum bicarbonate level 8, BUN 72, glucose 214, lactate 7.4, T. bili 2.1, proBNP 14,100, troponin 0.019, and urinalysis with +1 leukocyte esterase with >100 urine WBC with >30 urine squamous epithelial
cells. Urine culture was collected. CXR showed a left-sided pleural effusion. She was given 10 units regular insulin in the ER, 1 amp of sodium bicarb, 1 amp of D50 and started on a bicarbonate drip and admitted to the ICU for further care.
Protective Clothing Issuer services consulted for additional management/recommendations.
Chronic conditions APRN: CAD s/p CABG, ICM, hypertension, history of PVCs, DM type II, A-fib on Eliquis, left-sided breast cancer s/p mastectomy, chronic HFmrEF (LVEF 40% via TTE from 12/03/2023)
Impression:
#Rapid A-fib now on amiodarone gtt
#Acute respiratory failure with hypoxia
#Acute decompensated heart failure/acute HFrEF
#Cardiogenic shock with worsening lactic acidosis
#Chronic anemia
#Elevated INR in the setting of Eliquis use
#Metabolic acidosis with increased anion gap due to lactic acidosis and MATY
#Severe MTAY with hyperkalemia due to cardiorenal syndrome
#Lactic acidosis due to cardiogenic shock
#Mild irregular circumferential wall thickening in the rectum suspicious for a mild proctitis (less likely rectal adenocarcinoma) - seen on CT A/P from 08/02/2024
#DM type II complicated by hyperglycemia
#Hypochloremic, hyponatremia
#Transaminitis with hyperbilirubinemia
#Abnormal TFTs with elevated TSH
Plan:
- Patient is in severe MATY and is going to need urgent dialysis
- IR consulted for HD catheter placement as well as central line as she has inadequate IV access
- After further discussion, the patient decided that she is not interested in dialysis and understands that without dialysis that her acidosis could continue to worsen and she is potentially going to be pursuing comfort care/hospice (see my
separate update note from today)
- Continue to trend lactate until <2mmol/L, trend sHCO3 level, sCr, [K] and sNa
- Temporize hyperkalemia with insulin/D50 + lokelma
- Echo repeated today showing worsening LVEF now at 10-15% with severe global hypokinesis with moderately reduced RV systolic function, moderate�severe MR and moderate TR; compared to prior echo in November 2023, biventricular function is now
significantly worse and there are new wall motion abnormalities. This is concerning for acute coronary syndrome, however patient is contemplating comfort care; discussion held between myself and cardiology and given the low LVEF with multiorgan
failure, will start trial of inotropic therapy with dobutamine to see if this improves her renal function and shortness of breath
- Her INR is elevated and we will administer vitamin K; INR is likely elevated from multifactorial reasons from reduced PO intake in the setting of Eliquis use --> c/t trend INR; may need FFP (she is currently not bleeding)
- Check fibrinogen level as she could be developing DIC
- BG are elevated >400 --> start insulin gtt with hyperglycemia protocol
- Start bicarb gtt
- Maintain SpO2 >90-94% with supplemental O2 as needed
- Maintain MAP>65
- Goal heart rate <110; continue with amiodarone drip
- On CT abdomen/pelvis she has mild irregular circumferential wall thickening in the rectum suspicious for mild proctitis --> this could also very well be due to hypoperfusion; patient currently has no leukocytosis and remains afebrile; continue to
monitor and if patient spikes a fever or develops abdominal pain then would start antibiotics at that time with blood cultures prior to starting
- Replete electrolytes with K>4, Mg>2
- Trend H/H and transfuse if needed to keep Hb>7g/dL; keep plt>20k, unless there is concern for bleeding then keep plt>50k
- prn nebulized bronchodilators - not currently bronchospastic
- Incentive spirometer encouraged 10x per hour for at least 4 hrs a day
- DVT ppx: SCDs only given her INR is >6
- Guarded prognosis: DNR/DNI; patient/family contemplating comfort care/hospice; Hospice team consulted to speak with the patient today --> this will be an ongoing discussion regarding how aggressive they want to be in terms of her medical
treatment vs going home on hospice vs GIP
Critical care statement: A total of 40 minutes of critical care time was provided for this patient today. This includes management of unstable vital signs, evaluation of the patient at bedside, reviewing the patient's pertinent medical records
including radiographs, microbiology, laboratory evaluations, and discussion with primary team, consultants, pharmacy, nutrition, physical therapy, case management, charge nurse, critical care nursing, and respiratory therapy.
Data:
Transthoracic echocardiogram 08/02/2024:
Severely reduced left ventricular systolic function. LVEF 10-15%.
Severe global hypokinesis with sparing of the basal inferolateral wall and the
apical anterior and inferior hernández.
Moderately reduced right ventricular systolic function.
Biatrial enlargement.
Moderate to severe mitral regurgitation.
Moderate tricuspid regurgitation. Normal PASP (25-30 mmHg) but may be
underestimated in the setting of RV dysfunction.
Compared to prior echocardiogram on 12/03/2023, biventricular function is
significantly worse and there are new wall motion abnormalities. Valvular
regurgitation is stable to mildly improved though this may be due to worse LV
systolic function.
CT chest/abdomen/pelvis without contrast 08/02/24:
1. MODERATE-SIZED LEFT PLEURAL EFFUSION and small right pleural effusion with adjacent compressive subsegmental atelectasis in the basilar segments of the lower lobes (left greater than right).
2. Moderate cardiomegaly with biatrial enlargement.
3. Previous CABG surgery.
4. Severe calcific atherosclerotic disease.
5. No CT evidence for acute interstitial or alveolar pulmonary edema.
ABDOMEN and PELVIS:
1. Small volume of abdominal ascites.
2. Moderate chronic bilateral renal disease.
3. Severe calcific atherosclerotic plaque in the abdominal aorta and visceral arteries.
4. Severe diverticulosis in the descending and sigmoid colon.
5. Mild irregular circumferential wall thickening in the rectum suspicious for a mild proctitis (less likely rectal adenocarcinoma).
6. Small hiatal hernia.
7. MODERATE ANASARCA.
8. 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
[2024-08-02 08:37] LABS: Glucose - Point of Care 310 mg/dl (70-99)
--- NOTE | 2024-08-02 09:00 | PTCARENOTE ---
pt drowsy , Afib on monitor , BP 90/64, on room air with sat of 100% , labs noted this am INR 6.85 , anion gap 26.0 , ast 121, alt 79 , Dr Houston and Arnoldo aware of labs , pt seen by nephrology and plan for HD today , continues on amiodarone
gtt , IVF to be changed to bicarb , now urine output
--- NOTE | 2024-08-02 09:02 | W.PN.CD ---
Today's Communication / Plan
-
Continue IV amiodarone. Goal HR <120
Continue to hold anticoagulation given INR 6
Echo today
Starting renal replacement therapy per nephrology
Impression / Plan
-
79 y/o female (follows with Dr. King) with paroxysmal atrial fibrillation/flutter on Eliquis, CAD s/p CABG, ICM EF 40%, and severe MR who presents with palpitations found to have multiple severe laboratory abnormalities (acidosis, hyperkalemia,
possible liver failure) who looks surprisingly well. Cardiology is consulted for afib w RVR.
#Atrial fibrillation w RVR
-Suspect that this is being driven by underlying illness
-Rates are better controlled on IV amio drip. This is not ideal given LFT abnormalities but we are unable to use BB/CCB due to hypotension and cannot use Digoxin due to MATY.
-Goal HR <120
-Hold Eliquis given elevated INR
#Lactic acidosis
-Severe, threat to bodily function
-May be type B lactic acidosis given that she doesn't have other evidence of hypoperfusion. Possible sources include metformin or undiagnosed malignancy
-Continue to trend lactate and VBGs
-Supportive care per primary team with bicarb drip
-Renal on board
#Ischemic cardiomyopathy
-Warm and dry on exam. Last TTE with EF 40% and severe secondary MR
-Update echocardiogram today
-Monitor on telemetry
-No GDMT at this time due to MATY on CKD and hypotension
-Hold statin for LFT abnormalities
#MATY with severe hyperkalemia, improving
-Baseline Cr 1.2, Cr 2.9 on admission
-K improved s/p insulin
-Renal following
#Acute liver injury with elevated INR
-May meet criteria for MICHELLE given elevated INR. Unclear if she is encephalopathic given that we do not know her basline (if she is, it is very mild)
-Consider involving GI team
-Hold outpatient Eliquis as above
Subjective: Overnight heart rates were in the 120s�130s and did not respond to p.o. or IV metoprolol. Patient was started on an amiodarone infusion and heart rates are now in the 90s in atrial fibrillation. She continues to deny cardiovascular
complaints. Just has some back pain this morning which she thinks is related to how she slept.
Physical Exam
Vital Signs/Labs
Vital Signs
Temp Pulse Resp BP Pulse Ox
96.5 F L 138 23 112/91 98
08/02/24 08:18 08/01/24 23:57 08/01/24 19:00 08/01/24 23:57 08/01/24 20:00
08/01/24 08/02/24 08/03/24
06:59 06:59 06:59
Actual Weight 65.5 kg
08/02/24 06:27
08/02/24 06:27
PT 58.0 Sec (11.4-14.6) H 08/02/24 06:27
INR 6.85 H* 08/02/24 06:27
APTT 46.9 Sec (23.4-35.0) H 08/01/24 12:29
Magnesium 2.2 mg/dl (1.6-2.3) 08/02/24 06:27
08/01/24
12:28
Emy-O-Jodfqzqkmrz Pept [id number]
LAB Results
08/01/24 08/01/24
12:28 16:41
Troponin I 0.019 0.016
Physical Exam
Constitutional: No acute distress and Comfortable
Cardiovascular: Pedal edema is absent, Rhythm/rate is irregular and Murmur/rub/gallop absent
Respiratory: Respiratory effort normal and Lungs clear to auscul.
Data Reviewed
-
Date of Service: August 02, 2024
Medical Decision Making: Reviewed Test Results, Independent Historian Assessment, Test Interpretation and Review of Case with other Provider
EKG: Tracing Personally Visualized and interpreted
X-Ray/CT/US/MRI/NUC/PET: Image Personally Visualized and interpreted
Labs: Labs Reviewed by me
[2024-08-02] MEDS: SODIUM BICARBONATE 1150 MEQ IV ×2 (09:23→19:47)
--- NOTE | 2024-08-02 09:25 | W.PN.NEPH.PH ---
Today's Communication / Plan
-
Renal replacement therapy acute via Arben catheter today
Assessment/Plan
-
79 y/o female with PMH PAF on Eliquis, atrial flutter, ablation of both 02/2021, CAD s/p CABG x 5 2000, carotid stenosis with L CEA 2002, ICM EF 40%, severe MR, moderate AR, hypertension, dyslipidemia, PVC's, DM who is here for evaluation of SOB x 2
days. with uncontrolled atrial fibrillation and RVR acute kidney injury the creatinine of 2.9 BUN 74 bicarbonate 11 and a potassium of six
acute kidney injury admitting creatinine 2.9
acute metabolic acidosis bicarbonate 8> [id number] pH 7.09
hyperkalemia potassium 6.4> repeat 5.9
atrial fibrillation with RVR
ischemic cardiomyopathy with ejection fraction 40% November 2023
transaminase
lactic acidosis
plan:
acuity hemodynamically mediated hypotension and atrial fibrillation with RVR
agree with sodium bicarbonate drip
Unfortunately the patient is anuric with increasing lactic acidosis presumptively from metformin in the setting of MATY
She is now rate controlled on amiodarone
She will need renal replacement therapy via temporary dialysis catheter
I discussed this with the critical care team
I will place consult for interventional radiology. She will need FFP for INR of 6.8
Patient agreed to dialysis risk and benefits were discussed.
Total Time Spent with Patient (in minutes): 31 minutes in chart review , data analysis and treatment plan
-
-
Date of Service: August 02, 2024
CC / HPI / ROS
-
Chief Complaint:
Acute kidney injury
History of Present Illness:
MATY with lactic acidosis on metformin in the setting of atrial fibrillation and RVR
Review of Systems:
Denies any chest pain shortness of breath nausea or vomiting
Anuric via Waldrop catheter
Labs
-
Labs:
WBC 6.7 10^3/uL (4.8-10.8) 08/02/24 06:27
RBC 3.48 10^6/uL (4.20-5.40) L 08/02/24 06:27
Hgb 11.1 g/dL (12.0-16.0) L 08/02/24 06:27
Hct 34.6 % (37.0-47.0) L 08/02/24 06:27
Plt Count 221 10^3/uL (130-400) 08/02/24 06:27
Sodium 132 mmol/L (135-145) L 08/02/24 06:27
Potassium 4.9 mmol/L (3.5-5.1) 08/02/24 06:27
Chloride 95 mmol/L (98-107) L 08/02/24 06:27
Carbon Dioxide 11 mmol/L (22-30) L* 08/02/24 06:27
BUN 69 mg/dl (7-17) H 08/02/24 06:27
Creatinine 2.7 mg/dL (0.6-1.0) H 08/02/24 06:27
eGFR 17.19 08/02/24 06:27
Glucose 474 mg/dl (70-99) H* 08/02/24 06:27
Calcium 8.8 mg/dl (8.4-10.2) 08/02/24 06:27
Mai-X-Uuysbbknowh Pept 90375 pg/ml 08/01/24 12:28
Albumin 4.0 g/dl (3.5-5.0) 08/02/24 06:27
Physical Exam
-
Vital Signs:
Vital Signs
Temp Pulse Resp BP Pulse Ox
96.5 F L 138 23 112/91 98
08/02/24 08:18 08/01/24 23:57 08/01/24 19:00 08/01/24 23:57 08/01/24 20:00
Cardiovascular:: Irregular rate and rhythm
Respiratory:: Bilateral: Rhonchi
Lung Excursion:: Normal
Abdomen:: Soft
Bowel Sounds:: Normal
Extremity Edema:: +1: Bilateral:
Waldrop Catheter: Yes
Other Findings::
Oriented x 3
[2024-08-02 09:28] LABS: Urine Albumin 3+ (Neg - Trace); Urine Bilirubin 1+ (Negative); Urine Character Slightly Cloudy (Clear); Urine Color Yellow; Urine Glucose 1+ (Negative); Urine Ketone Negative (Negative); Urine Leukocyte 1+ (Negative); Urine Nitrite Negative (Negative); Urine Occult Blood 4+ (Negative); Urine Urobilinogen 1+ (Neg - 1+)
[2024-08-02 09:47] LABS: Glycohemoglobin (HgbA1c) 7.9 % (4.0-5.6)
[2024-08-02 09:59] LABS: Urine Sodium 26 mmol/L (30-90)
[2024-08-02 10:12] LABS: Protein/creatinine Ratio 2.2; Urine Protein 437 mg/dl
[2024-08-02 10:22] LABS: Urine Calcium Oxalate Crystals Seen; Urine Squamous Cell >30 /LPF (Few)
[2024-08-02 10:23] LABS: Urine Bacteria Many (Negative); Urine White Cell >100 /HPF (0-5)
[2024-08-02] MEDS: AQUAMEPHYTON 51 MG IV (11:10)
[2024-08-02 12:11] LABS: Glucose - Point of Care 199 mg/dl (70-99)
--- NOTE | 2024-08-02 12:21 | PN.DE.MGMTRT ---
Insulin Management
- -
08/02/2024 Diabetes Management Consult
Patient admitted 08/01 c/o by , patient sleeping more than usual, very weak, decreased appetite, difficulty breathing. PMH includes dementia, afib, CAD, HTN, HCL, L breast ca, diabetes.. Prior to admission was taking 1000 mg metformin @ hs.
A1C 7.9%, cr 2.7, eGFR 17.19.
Patient glucose yesterday 196 to 227, received Regular insulin. Fasting glucose this AM 474. GAP 26, lactic acid 9.
Cupola Melter to start insulin infusion.
Will follow for readiness to transition from insulin infusion.
Diabetes History
- -
Type of Diabetes: 2
Pre-Admission Diabetes Regimen
08/01/24 08/01/24 08/01/24
12:28 16:41 20:28
Creatinine 2.9 H 2.9 H 2.8 H
08/02/24 08/02/24
00:45 06:27
Creatinine 2.8 H 2.7 H
Lab Results
Hemoglobin A1c 7.9 % (4.0-5.6) H 08/02/24 06:27
Insulin Pump Settings
IP Diabetes Regimen
08/01/24 08/01/24 08/01/24
12:28 13:59 14:54
Glucose 214 H
POC Glucose 183 H 227 H
08/01/24 08/01/24 08/01/24
16:00 16:41 17:49
Glucose 225 H 211 H
POC Glucose 172 H
08/01/24 08/01/24 08/01/24
19:58 20:28 23:21
Glucose 196 H
POC Glucose 181 H 275 H
08/02/24 08/02/24 08/02/24
00:34 00:45 02:56
Glucose 283 H
POC Glucose 292 H 319 H
08/02/24 08/02/2424
06:27 08:26 11:59
Glucose 474 H*
POC Glucose 310 H 199 H
Patient Education
[2024-08-02] MEDS: NOVOLIN R 100 UNITS IV (12:45)
[2024-08-02] MEDS: NOVOLIN R INSULIN INFUSION 100 IV (12:46)
--- NOTE | 2024-08-02 12:49 | VATNOTE ---
PICC order patient's INR is 6.65 which is too high to safely place a PICC line, will place a PICC when INR is corrected, if patient still needs it.
[2024-08-02 13:45] LABS: Venous Blood Gas B.E. -9.8 mmol/L (-4 to +4); Venous Blood Gas HCO3 16.7 mmol/L (22-27); Venous Blood Gas O2 Sat % 52.5 %; Venous Blood Gas pCO2 38 mmHg (35-48); Venous Blood Gas pH 7.25 (7.32-7.43); Venous Blood Gas pO2 37 mmHg (30-50)
[2024-08-02 13:46] LABS: Venous Blood Gas O2 Therapy 21%
[2024-08-02 13:56] LABS: APTT 46.1 Sec (23.4-35.0); PT 65.5 Sec (11.4-14.6)
[2024-08-02 13:58] LABS: INR > 8.0
[2024-08-02 14:14] LABS: Glucose - Point of Care 140 mg/dl (70-99)
--- NOTE | 2024-08-02 14:27 | W.PN.UPDATE ---
Update Note
Progress Note Update
Patient's echocardiogram was done today and is notable for severely reduced left ventricular systolic function (EF 10-15%) with regional wall motion abnormalities and moderate to severe MR. I updated family with this news and expressed my concern
about Natalya's very guarded prognosis. I explained that she now has at least 3 organs failing (heart, kidneys, liver) and I am not sure that we are going to be able to fix these problems. Her INR is up to 11, so I worry that she will not be a
candidate to get dialysis access. Without dialysis her prognosis is extremely poor. Her family and I did find an advanced directive through her primary care doctor (Dr. Lindsey Vogt). The document is not very specific but states that at the end
of life she would like to be pain-free, would not want to be a burden to her family and would like to have her daughter make decisions. This is a lot for family to process given that this is all acute. They will think about next steps and I will
northway back with them to discuss further after they speak to nephrology.
[2024-08-02 14:56] LABS: Blood Urea Nitrogen 74 mg/dl (7-17); Calcium 8.8 mg/dl (8.4-10.2); Carbon Dioxide 16 mmol/L (22-30); Chloride 95 mmol/L (98-107); Estimated Creatinine Clearance 12 ml/min; Glucose 190 mg/dl (70-99); Potassium 5.2 mmol/L (3.5-5.1); Sodium 136 mmol/L (135-145); eGFR 14.56
--- NOTE | 2024-08-02 15:16 | W.PN.UPDATE ---
Update Note
Progress Note Update
Discussed patient clinical status with the patient's daughter, Kalani, patient's , Giovanni, and he patient's son, Charlie (over the phone). They are aware of the patient's severe heart failure with severe acute kidney injury. The patient is
not interested in dialysis. They did bring up comfort care with me, however they also talked about starting dobutamine which was discussed with them by cardiology. I said that dobutamine drip is an option however we need to establish adequate IV
access first. Patient remains short of breath with activity and fortunately she is comfortable at rest. I did mention that I will be consulting hospice so that they can talk about end-of-life options that the patient has, and the family is
interested in this. All questions were answered and emotional support was provided.
--- NOTE | 2024-08-02 15:36 | CM ---
CM following re: discharge planning.
Reviewed pt's chart, met with pt. Pt's , daughter son in law and daughter in law at bedside.
Pt is an 79 year old female, admitted with primary dx of Anion Gap Metabolic acidosis. MATY on acute kidney failure.
Pt lives with 22SH, 2 steps to enter, has 2 supportive children. Both pt and her family are aware of limited medical interventions and family is aware of hospice consult. Emotional support offered and provided. Both pt and her family
preferred hospice.
A referral to hospice made. digital production operator meeting with the pt and her family.
D/C plan: possibly comfort care/hospice care.
CM will follow with discharge plan updates as hospitalization progresses
[2024-08-02 15:44] LABS: Glucose - Point of Care 134 mg/dl (70-99)
--- NOTE | 2024-08-02 15:53 | HOSPNOTE ---
Met with family and discussed hospice and the philosophy. The family and patient need time to talk and will let me know in the am. I told family the patient could remain here possibly or home. The patient would meet criteria to stay here with her
shortness of breath. The patient is in agreement with no aggressive measures and remains a DNR. I will follow up first thing in the am.
[2024-08-02 16:35] LABS: Direct Bilirubin 1.3 mg/dl (0.0-0.4); GGTP 145 U/L (12-43)
[2024-08-02 16:37] LABS: Glucose - Point of Care 116 mg/dl (70-99)
[2024-08-02 16:44] LABS: Hepatitis B Surface Antibody Negative
[2024-08-02] MEDS: DOBUTREX 500 MG 250 IV (16:44)
--- NOTE | 2024-08-02 16:45 | CHAP ---
Emotional and spiritual support provided. Prayer blanket given. Prayers shared.
--- NOTE | 2024-08-02 17:19 | PTCARENOTE ---
pt INR continues to increase despite Vitamin K this am , pt had Echo done with results given to firer kiln and skilled helper , pt results of EF of 10-15% , truck washer here and spoke to pt daughter and son regarding goals of care and options ,
plan for patient to start on dobutamine , pt is difficult IV stick and needs further access, IV team notified
--- NOTE | 2024-08-02 17:23 | PTCARENOTE ---
pt family at bedside , spoke to all physicians re plan of care and options , currently pt and family is not pursuing HD, pt is currently on Dobutamine gtt, Glycemic protocol and Amiodarone gtt, family deciding on goals of care, hospice was consulted
and spoke to family regarding options
[2024-08-02 18:23] LABS: Glucose - Point of Care 104 mg/dl (70-99)
--- NOTE | 2024-08-02 19:20 | PTCARENOTE ---
family wants hospice care and wants to discuss more with options of home hospice or inpatient hospice tomorrow and will withdraw medical care tomorrow
--- NOTE | 2024-08-02 20:00 | PTCARENOTE ---
Pt received start of shift. HR afib. Dobutamine gtt, insulin gtt, bicarb gtt, and amiodarone gtt infusing via peripheral sites. Glycemic protocol. Pt forgetful, needs occasional reminders she has a woodward catheter in. Pt AAOx3. Lungs diminished b/l,
crackles heard L side. RA, SPO2 100%. Denies any pain.
[2024-08-02 20:13] LABS: Glucose - Point of Care 105 mg/dl (70-99)
--- NOTE | 2024-08-02 20:22 | W.PN.UPDATE ---
Update Note
Progress Note Update
Held a discussion regarding goals of care with pt, , daughter (POA), and extended family. At this time, all parties understand she is in multi-system organ failure and prognosis is grim. Pt wishes to be comfortable and does not want to be a
burden to her family. She declines lifesaving measures, including dialysis. Her family is in agreement. She would like to go home tomorrow on home hospice. Daughter and would like to continue all measures overnight to keep her comfortable.
[2024-08-02 20:55] LABS: Free T4 1.63 ng/dl (0.78-2.19)
[2024-08-02 22:13] LABS: Glucose - Point of Care 97 mg/dl (70-99)
[2024-08-03] VITALS (12 sets, daily range): BP systolic 91–127; BP diastolic 59–93
[2024-08-03 00:15] LABS: Glucose - Point of Care 111 mg/dl (70-99)
--- NOTE | 2024-08-03 00:30 | PTCARENOTE ---
No change in physical assessment. Pt notified RN she need to have a BM, pt placed on bed [place]. Scant fecal matter produced.
[2024-08-03 02:23] LABS: Glucose - Point of Care 105 mg/dl (70-99)
[2024-08-03] MEDS: SODIUM BICARBONATE 1150 MEQ IV ×2 (04:12→12:51)
[2024-08-03 04:15] LABS: Glucose - Point of Care 90 mg/dl (70-99)
[2024-08-03 05:44] LABS: Magnesium 1.9 mg/dl (1.6-2.3); Phosphorus 3.8 mg/dl (2.5-4.5)
[2024-08-03 05:49] LABS: NT-proBNP 9370 pg/ml
[2024-08-03 05:52] LABS: Hematocrit 30.8 % (37.0-47.0); Hemoglobin 9.9 g/dL (12.0-16.0); Mean Corp Hgb Conc. 32.1 g/dL (33.0-37.0); Mean Corpuscular Hgb 31.3 pg (27.0-31.0); Mean Corpuscular Volume 97.5 fL (81.0-99.0); Platelet Count 146 10^3/uL (130-400); Red Blood Cell Count 3.16 10^6/uL (4.20-5.40); Red Cell Dist. Width 15.7 % (11.5-14.5); White Blood Cell Count 7.1 10^3/uL (4.8-10.8)
[2024-08-03 06:23] LABS: Glucose - Point of Care 107 mg/dl (70-99)
[2024-08-03 06:31] LABS: APTT 48.8 Sec (23.4-35.0); Fibrinogen 169 MG/DL (199-459)
[2024-08-03 06:33] LABS: INR 5.48
--- NOTE | 2024-08-03 07:26 | PN.DE.MGMTRT ---
Insulin Management
- -
08/03/2024 Diabetes Management Consult Follow up
Patient admitted 08/01 c/o by , patient sleeping more than usual, very weak, decreased appetite, difficulty breathing. PMH includes dementia, afib, CAD, HTN, HCL, L breast ca, diabetes.. Prior to admission was taking 1000 mg metformin @ hs.
A1C 7.9%, cr 2.7, eGFR 17.19.
08/02 Patient glucose yesterday 474 received Regular insulin then insulin infusion started. Glucose range 97 to 199 requiring .5 to 3 units of insulin per hour. Fasting glucose this AM 107, insulin infusion @ 1 units per hour.
Activity Aide had discussion with family re: comfort care, will stop insulin infusion this AM, and order AC corrective insulin only.
When transitioned to hospice stop AC corrective.
Diabetes History
- -
Type of Diabetes: 2
Pre-Admission Diabetes Regimen
08/02/24 08/02/24 08/02/24
06:27 13:33 14:00
Creatinine 2.7 H 3.1 H Cancelled
08/02/24 08/02/24 08/02/24
16:00 18:00 20:00
Creatinine Cancelled Cancelled Cancelled
08/02/24
22:00
Creatinine Cancelled
Lab Results
Hemoglobin A1c 7.9 % (4.0-5.6) H 08/02/24 06:27
Insulin Pump Settings
IP Diabetes Regimen
08/02/24 08/02/24 08/02/24
06:27 08:26 11:59
Glucose 474 H*
POC Glucose 310 H 199 H
08/02/24 08/02/24 08/02/24
13:33 14:00 14:02
Glucose 190 H Cancelled
POC Glucose 140 H
08/02/24 08/02/24 08/02/24
15:32 16:00 16:26
Glucose Cancelled
POC Glucose 134 H 116 H
08/02/24 08/02/24 08/02/24
18:00 18:11 20:00
Glucose Cancelled Cancelled
POC Glucose 104 H
08/02/24 08/02/24 08/02/24
20:01 22:00 22:02
Glucose Cancelled
POC Glucose 105 H 97
08/03/24 08/03/24 08/03/24
00:03 02:05 04:05
Glucose
POC Glucose 111 H 105 H 90
08/03/24
06:12
Glucose
POC Glucose 107 H
Meal type: Breakfast
Patient Education
--- NOTE | 2024-08-03 07:55 | W.PN.HOSP.TC ---
Addendum entered and electronically signed by Ahbijit Mclaughlin MD 08/03/24 21:46:
Attending Addendum-
I saw and evaluated the patient. I reviewed the resident�s note and agree with findings and plan as documented in the resident�s note. Sub: patient with no complaints. Seen with family present. Full 12 point ROS reviewed and negative except as
documented Exam- vitals reviewed in EMR GEN-NAD pale b/l scleral icterus heart irreg irreg tachy no rub lungs decreased BS @ bases LEFT>Right abd soft LE trace edema
Plan:
# Severe AGMA
- cont comfort care measures
- EOL care
- poor prognosis
- DC to home with hospice in am
# Cardiogenic Shock
- ECHO 08/02-Severely reduced left ventricular systolic function. LVEF 10-15%.
Severe global hypokinesis with sparing of the basal inferolateral wall and the
apical anterior and inferior hernández.
- poor prognosis
- comfort care measures
# MATY on CKD 3b
- baseline @ 1.3
- woodward placed
# Hyperkalemia
# Transaminitis/ Acute Liver Failure
# A fib with RVR- cont metoprolol DC amiodarone
# DM- cont insulin
# CAD s/p CABG x 5 2000
# CS s/p CEA 2002
CODE DNR
Dispo lives with alone DC in am om to home for hospice at home
Time spent coordinating care, review of plan of care with resident, personally reviewed records in EMR, med rec, consults, notes, labs, radiology, d/w nursing, family, hospice � 51 mins
Original Note:
Today's Communication/Plan
-
.
Assessment / Plan
Assessment / Plan
Ms. Natalya Guillory is an 79yoF pmh HFrEF (EF 10-15%), afib on eliquis, CAD, HTN, HLD, NIDDM, CKD stage 3b admitted for metabolic acidosis.
Anion Gap Metabolic acidosis
MATY on CKD stage 3b
Uremia
Lactic acidosis
- ivf
- replete bicarb
- MATY likely due to fluid overload in setting of CKD and multiorgan system failure
- nephrology following
Anuria
- woodward catheter placed
- pt and family do not wish to pursue dialysis at this time
- improving
HFrEF exacerbation
CAD s/p CABG
- echo: EF 10-15%, severe global hypokinesis, mod to severe MR, mod TR, RV dysfunction
- volume overloaded
Afib w RVR
Hypotension
- hold eliquis
- cardiology consulted - stop dobutamine and GDMT
Abnormal coagulation profile
Transaminitis
Anemia
- hold statin
Type 2 DM
Overweight due to excess calories
- hold home metformin
- ISS low
- HbA1c 7.9
Diet: regular
DVT ppx: SCDs
Code status: DNR
Anticipated Discharge: Within 24 hours
Subjective/Interval History
-
Date of Service: August 03, 2024
Ms. Natalya Guillory is an 79yoF h HFrEF (EF 10-15%), afib on eliquis, CAD, HTN, HLD, NIDDM, CKD stage 3b admitted for metabolic acidosis. Pt and her family are still planning to do home hospice. The earliest it can be set up is tomorrow. The family
and pt would like her to remain on all of her drips and support until she is discharged. Daughter (POA) comfortable with stopping dobutamine and amiodarone.
Objective Data
-
Labs:
Laboratory Results
08/03/24 08/03/24
04:54 05:55
WBC 7.1
Hgb 9.9 L
Hct 30.8 L
Plt Count 146 D
PT Cancelled 49.0 H
INR Cancelled 5.48 H* D
APTT Cancelled 48.8 H
Vital Signs:
Vital Signs
Temp Pulse Resp BP Pulse Ox
96.3 F L 138 15 102/68 97
08/03/24 02:10 08/03/24 06:15 08/03/24 06:15 08/03/24 06:00 08/03/24 06:15
I&O
08/02/24 08/03/24 08/04/24
06:59 06:59 06:59
Intake Total 2098. / 2098.9 3206.1 / 3206.1
Output Total 130 / 130
Balance 2098.2098.9 3076.1 / 3076.1
Review of Systems
-
History Source: Patient
Constitutional: Reports No Symptoms
EENT: Reports No Symptoms Reported
Respiratory: Reports No Symptoms
Cardiac: Reports No Symptoms
Abdomen/GI: Reports No Symptoms
Breast: Reports No Symptoms
Genitourinary: Reports No Symptoms
Musculoskeletal: Reports No Symptoms
Skin: Reports No Symptoms
Neuro: Reports No Symptoms
Endocrine: Reports No Symptoms
Physical Exam
-
General: Well Developed and Well Nourished
HEENT: Normocephalic, Atraumatic and Other (scleral icterus)
Respiratory: Clear to Auscultation and Non Labored Respirations
Cardiac: S1/S2 and Irregular Rhythm; Negative Murmur, Rub or Gallop
GI: Soft, Nontender, Nondistended and Normal Bowel Sounds
Musculoskeletal: No Clubbing, Cyanosis, Edema, Right Lower Extrem and Edema, Left Lower Extrem
Skin: Warm, Dry and Jaundice
Neuro: Awake and Alert
Psych: Calm
[2024-08-03 08:15] LABS: Glucose - Point of Care 93 mg/dl (70-99)
--- NOTE | 2024-08-03 08:19 | W.PN.INTV ---
Today's Communication / Plan
Recommendations
Continue with dobutamine and monitor for arrhythmias
Continue with amiodarone
Goal HR <110
Replete K >4, Mg >2
MAP>65
Stop insulin drip and start basal�bolus SQ insulin dosing
Stop bicarb gtt
Awaiting home hospice tomorrow
Continue with ICU level care until patient is discharged tomorrow
Assessment
-
Assessment: 79-year-old female with a past medical history of CAD s/p CABG, paroxysmal A-fib on Eliquis, ischemic cardiomyopathy, hypertension, history of PVCs, bilateral carotid artery stenosis with history of endarterectomy, valvular heart
disease with MR, TR, and AI, and DM type II who presents with worsening shortness of breath for 1 week. She has been endorsing worsening fatigue, weakness and loss of appetite with reduced PO intake. Patient's been sleeping more and has been
confused for the last few weeks as per the patient's . In the ER she was tachycardic to 134 (A-fib with RVR), breathing at 18 breaths/min, BP 125/80 and saturating 100% on room air. Labs showed Hb 12.4, WBC 6.6, INR 5.92, blood gas with pH
7.09, pCO2 35, creatinine 2.9, potassium 6.4, serum bicarbonate level 8, BUN 72, glucose 214, lactate 7.4, T. bili 2.1, proBNP 14,100, troponin 0.019, and urinalysis with +1 leukocyte esterase with >100 urine WBC with >30 urine squamous epithelial
cells. Urine culture was collected. CXR showed a left-sided pleural effusion. She was given 10 units regular insulin in the ER, 1 amp of sodium bicarb, 1 amp of D50 and started on a bicarbonate drip and admitted to the ICU for further care.
Airplane Technician services consulted for additional management/recommendations.
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
Impression:
#Rapid A-fib now on amiodarone gtt
#Acute respiratory failure with hypoxia
#Acute decompensated heart failure/acute HFrEF on dobutamine infusion
#Cardiogenic shock with worsening lactic acidosis
#Chronic anemia (baseline Hb: 9�11g/dL)
#Elevated INR in the setting of Eliquis use
#Metabolic acidosis with increased anion gap due to lactic acidosis and MATY
#Severe MATY with hyperkalemia due to cardiorenal syndrome
#Lactic acidosis due to cardiogenic shock
#Mild irregular circumferential wall thickening in the rectum suspicious for a mild proctitis (less likely rectal adenocarcinoma) - seen on CT A/P from 08/02/2024
#DM type II complicated by hyperglycemia
#Hypochloremic, hyponatremia
#Transaminitis with hyperbilirubinemia
#Abnormal TFTs with elevated TSH
Plan:
- Patient is in severe MATY and was recommended for dialysis which she refused
- On 08/02 after further discussion, the patient decided that she is not interested in dialysis and understands that without dialysis that her acidosis will likely continue to worsen; she has met with hospice and is awaiting home hospice tomorrow
(08/04)
- She is continued on dobutamine for her acute HFrEF with cardiogenic shock and is also on amiodarone for her rapid A-fib
- Continue to trend lactate until <2mmol/L, trend sHCO3 level, sCr, [K] and sNa
- Temporize hyperkalemia with insulin/D50 + lokelma
- Echo repeated on 08/02/2024 and showed worsening LVEF now at 10-15% with severe global hypokinesis with moderately reduced RV systolic function, moderate�severe MR and moderate TR; compared to prior echo in November 2023, biventricular function is
now significantly worse and there are new wall motion abnormalities. This is concerning for acute coronary syndrome, however this is a moot point as she is awaiting home hospice on 08/04. On 08/02, discussion held between myself and cardiology and
given the low LVEF with multiorgan failure, we started trial of inotropic therapy with dobutamine to see if this improves her renal function and shortness of breath
- Her INR is elevated and she is s/p vitamin K 10mg IV x1 on 08/02; INR is likely elevated from multifactorial reasons from reduced PO intake in the setting of Eliquis use --> c/t trend INR; may need FFP (she is currently not bleeding)
- Fibrinogen level is low --> she could be developing DIC
- BG are elevated >400 --> insulin gtt started with hyperglycemia protocol, however given that she is now going on home hospice on 08/04, insulin drip is now stopped and we will continue with basal�bolus insulin dosing with goal BG 140-180mg/dL
- Stop bicarb gtt given her serum bicarbonate level today is 31
- Maintain SpO2 >90-94% with supplemental O2 as needed
- Maintain MAP>65
- Goal heart rate <110; continue with amiodarone drip
- On CT abdomen/pelvis she has mild irregular circumferential wall thickening in the rectum suspicious for mild proctitis --> this could also very well be due to hypoperfusion; patient currently has no leukocytosis and remains afebrile; continue to
monitor and if patient spikes a fever or develops abdominal pain then would start antibiotics at that time with blood cultures prior to starting
- Replete electrolytes with K>4, Mg>2
- Trend H/H and transfuse if needed to keep Hb>7g/dL; keep plt>20k, unless there is concern for bleeding then keep plt>50k
- prn nebulized bronchodilators - not currently bronchospastic
- Incentive spirometer encouraged 10x per hour for at least 4 hrs a day
- DVT ppx: SCDs only given her INR is >5
- Guarded prognosis: DNR/DNI; patient/family has met with hospice and they are awaiting home hospice on 08/04
Critical care statement: A total of 42 minutes of critical care time was provided for this patient today. This includes management of unstable vital signs, evaluation of the patient at bedside, reviewing the patient's pertinent medical records
including radiographs, microbiology, laboratory evaluations, and discussion with primary team, consultants, pharmacy, nutrition, physical therapy, case management, charge nurse, critical care nursing, and respiratory therapy.
Data:
Transthoracic echocardiogram 08/02/2024:
Severely reduced left ventricular systolic function. LVEF 10-15%.
Severe global hypokinesis with sparing of the basal inferolateral wall and the
apical anterior and inferior hernández.
Moderately reduced right ventricular systolic function.
Biatrial enlargement.
Moderate to severe mitral regurgitation.
Moderate tricuspid regurgitation. Normal PASP (25-30 mmHg) but may be
underestimated in the setting of RV dysfunction.
Compared to prior echocardiogram on 12/03/2023, biventricular function is
significantly worse and there are new wall motion abnormalities. Valvular
regurgitation is stable to mildly improved though this may be due to worse LV
systolic function.
CT chest/abdomen/pelvis without contrast 08/02/24:
1. MODERATE-SIZED LEFT PLEURAL EFFUSION and small right pleural effusion with adjacent compressive subsegmental atelectasis in the basilar segments of the lower lobes (left greater than right).
2. Moderate cardiomegaly with biatrial enlargement.
3. Previous CABG surgery.
4. Severe calcific atherosclerotic disease.
5. No CT evidence for acute interstitial or alveolar pulmonary edema.
ABDOMEN and PELVIS:
1. Small volume of abdominal ascites.
2. Moderate chronic bilateral renal disease.
3. Severe calcific atherosclerotic plaque in the abdominal aorta and visceral arteries.
4. Severe diverticulosis in the descending and sigmoid colon.
5. Mild irregular circumferential wall thickening in the rectum suspicious for a mild proctitis (less likely rectal adenocarcinoma).
6. Small hiatal hernia.
7. MODERATE ANASARCA.
8. 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
Subjective Dataa
Subjective Data
Date of Service:
Date of Service: August 03, 2024
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
Subjective:
Patient seen this morning with , Giovanni, at bedside. All questions were answered. She has no complaints, is currently on amiodarone + dobutamine at 5mcg/kg/min. She denies shortness of breath at rest. She is currently on room air
saturating 98%. Denies chest pain, BENAVIDEZ, abdominal pain, nausea, fevers or chills.
Review of Systems
General: Other (Negative unless mentioned above)
Objective Data
Data Reviewed
Vital Signs / I&O / Oxygen:
Vital Signs
Temp Pulse Resp BP Pulse Ox
97.8 F 124 16 98/59 100
08/03/24 08:05 08/03/24 08:05 08/03/24 08:05 08/03/24 08:05 08/03/24 07:52
Intake and Output
08/02/24 08/03/24 08/04/24
06:59 06:59 06:59
Intake Total 2099.9 / 2099.9 3206.1 / 3357.9 303.6 / 303.6
Output Total 130 / 160 70 / 70
Balance 2099.9 / 2099.9 3076.1 / 3197.9 233.6 / 233.6
SaO2 100
Physical Exam
General: Respiratory Distress (negative), Comfortable, Chills (negative) and Sweats (negative)
HEENT: Normocephalic and Anicteric
Cardiovascular: Irregular Rhythm (Irregularly irregular), Peripheral Edema (negative) and Other (Tachycardic)
Respiratory: Wheeze (negative), Crackles (Bilaterally), Rhonchi (negative), Non-Labored Respirations and Stridor (negative)
GI: Soft, Non Distended, Non Tender and Normal Bowel Sounds
Neurology: Awake, Alert and Tremors (negative)
Skin: Warm, Dry, Cyanosis (negative) and Jaundice (negative)
Labs/Micro/Reports
Lab Data
08/03/24 04:54
08/02/24 22:00
Laboratory Results
08/02/24 08/03/24 08/03/24
13:33 04:54 05:55
PT 65.5 H Cancelled 49.0 H
INR > 8.0 H* Cancelled 5.48 H* D
APTT 46.1 H Cancelled 48.8 H
--- NOTE | 2024-08-03 08:26 | W.PN.CD ---
Today's Communication / Plan
-
Home on hospice today
No CV meds on discharge given her goals
Impression / Plan
-
79 y/o female (follows with Dr. King) with paroxysmal atrial fibrillation/flutter on Eliquis, CAD s/p CABG, ICM EF 40%, and severe MR who presents with palpitations found to have multiple severe laboratory abnormalities (acidosis, hyperkalemia,
possible liver failure), now found to have cardiogenic shock. Patient and family have elected to go home on hospice today.
# Cardiogenic shock
-Stop dobutamine given we are now transitioning to focus on comfort
-She could take p.o. Lasix outpatient if she develops volume overload and is uncomfortable
-Stop all other GDMT and statin
#Atrial fibrillation w RVR
-Hold anticoagulation given hospice status and elevated INR
-She is asymptomatic so would not send home with rate control given that her comfort is the main focus
#MATY with hyperkalemia
-Patient and family have declined dialysis
Subjective: Overnight patient and family elected to go home on hospice today.
Physical Exam
Vital Signs/Labs
Vital Signs
Temp Pulse Resp BP Pulse Ox
97.8 F 124 16 98/59 100
08/03/24 08:05 08/03/24 08:05 08/03/24 08:05 08/03/24 08:05 08/03/24 07:52
08/02/24 08/03/24 08/04/24
06:59 06:59 06:59
Actual Weight 65.5 kg
08/03/24 04:54
08/02/24 22:00
PT 49.0 Sec (11.4-14.6) H 08/03/24 05:55
INR 5.48 H* D 08/03/24 05:55
APTT 48.8 Sec (23.4-35.0) H 08/03/24 05:55
Magnesium 1.9 mg/dl (1.6-2.3) 08/03/24 04:54
Free T4 1.63 ng/dl (0.78-2.19) 08/02/24 06:27
08/01/24 08/03/24
04:54
Xou-E-Piqwzlxummu Pept [id number]
LAB Results
08/01/24 08/01/24
16:41
Troponin I 0.019 0.016
Physical Exam
Constitutional: No acute distress and Comfortable
Data Reviewed
-
Date of Service: August 03, 2024
Medical Decision Making: Reviewed Test Results, Independent Historian Assessment, Test Interpretation and Review of Case with other Provider
EKG: Tracing Personally Visualized and interpreted
Echo: Report Reviewed by me
Labs: Labs Reviewed by me
--- NOTE | 2024-08-03 08:33 | W.PN.NEPH.PH ---
Today's Communication / Plan
-
Hospice
Sign off
Assessment/Plan
-
79 y/o female with PMH PAF on Eliquis, atrial flutter, ablation of both 02/2021, CAD s/p CABG x 5 2000, carotid stenosis with L CEA 2002, ICM EF 40%, severe MR, moderate AR, hypertension, dyslipidemia, PVC's, DM who is here for evaluation of SOB x 2
days. with uncontrolled atrial fibrillation and RVR acute kidney injury the creatinine of 2.9 BUN 74 bicarbonate 11 and a potassium of six
acute kidney injury admitting creatinine 2.9
acute metabolic acidosis bicarbonate 8> pH 7.09
hyperkalemia potassium 6.4> repeat 5.9
atrial fibrillation with RVR
ischemic cardiomyopathy with ejection fraction 40% November 2023
transaminase
lactic acidosis
Plan:
MATY worsening with creatinine up to 3.1m urine output via Waldrop only 150 cc
patient remains hemodynamically unstable in setting of atrial fibrillation with RVR
Maintain sodium bicarbonate drip for metabolic acidosis
Unfortunately the patient is anuric with increasing lactic acidosis presumptively from metformin in the setting of MATY
Family did not wish to pursue dialysis
Patient will go home on hospice today
-
-
Date of Service: August 03, 2024
CC / HPI / ROS
-
Chief Complaint:
Acute kidney injury
History of Present Illness:
MATY with lactic acidosis on metformin in the setting of atrial fibrillation and RVR
Creatinine worse up to 3.1 and patient barely oliguric
Remains hemodynamically [place]
Review of Systems:
Denies any chest pain shortness of breath nausea or vomiting
Anuric via Waldrop catheter
Labs
-
Labs:
WBC 7.1 10^3/uL (4.8-10.8) 08/03/24 04:54
RBC 3.16 10^6/uL (4.20-5.40) L 08/03/24 04:54
Hgb 9.9 g/dL (12.0-16.0) L 08/03/24 04:54
Hct 30.8 % (37.0-47.0) L 08/03/24 04:54
Plt Count 146 10^3/uL (130-400) D 08/03/24 04:54
Sodium Cancelled 08/02/24 22:00
Potassium Cancelled 08/02/24 22:00
Chloride Cancelled 08/02/24 22:00
Carbon Dioxide Cancelled 08/02/24 22:00
BUN Cancelled 08/02/24 22:00
Creatinine Cancelled 08/02/24 22:00
eGFR Cancelled 08/02/24 22:00
Glucose Cancelled 08/02/24 22:00
Calcium Cancelled 08/02/24 22:00
Phosphorus 3.8 mg/dl (2.5-4.5) 08/03/24 04:54
Njj-I-Sfcezcrqsyf Pept 9370 pg/ml 08/03/24 04:54
Albumin 4.0 g/dl (3.5-5.0) 08/02/24 06:27
Physical Exam
-
Vital Signs:
Vital Signs
Temp Pulse Resp BP Pulse Ox
97.8 F 124 16 98/59 100
08/03/24 08:05 08/03/24 08:05 08/03/24 08:05 08/03/24 08:05 08/03/24 07:52
Cardiovascular:: Irregular rate and rhythm
Respiratory:: Bilateral: Rhonchi
Lung Excursion:: Normal
Abdomen:: Soft
Bowel Sounds:: Normal
Extremity Edema:: +1: Bilateral:
Waldrop Catheter: Yes
Other Findings::
Oriented x 3
[2024-08-03 10:16] LABS: Glucose - Point of Care 92 mg/dl (70-99)
[2024-08-03 11:19] LABS: Blood Urea Nitrogen 78 mg/dl (7-17); Carbon Dioxide 31 mmol/L (22-30); Chloride 89 mmol/L (98-107); Estimated Creatinine Clearance 12 ml/min; Glucose 127 mg/dl (70-99); Potassium 4.5 mmol/L (3.5-5.1); Sodium 128 mmol/L (135-145); eGFR 15.14
--- NOTE | 2024-08-03 11:38 | HOSPNOTE ---
Met with family this am and all in agreement with hospice. The plan is for the patient to remain in ICU and continue medications and get patient home in the am. Patient and family are all in agreement with plan. Equipment was ordered and will be
delivered. OOH DNR needed on chart. Transport is needed and will be scheduled. CM and Attending aware of plan.
--- NOTE | 2024-08-03 12:26 | CM ---
CM following re: discharge planning.
Discussed in Rounds, reviewed pt's chart, met with pt. Pt's , daughter, son in law and a granddaughter at bedside.
Per client liaison, both pt and her family agree with hospice care and pt will be signed in on hospice care tomorrow at home. Transportation requested for tomorrow at 11:00 a.m.
Pt's family are aware of the plan, expressed their agreement. IMM reviewed, placed on chart, pt has a copy.
to arrange transportation BLS for tomorrow with requested time 11:00 a.m. PMNC completed and left with UC. to sign out of hospital DNR.
D/C plan: home tomorrow at 11:00 by ambulance BLS with hospice and family support.
[2024-08-03] MEDS: NOVOLOG FLEXPEN-LOW RESISTANCE SC (12:44)
--- NOTE | 2024-08-03 15:52 | PTCARENOTE ---
pt resting comfortably in bed, dobutamine decreased d/t HR in 130's. IVF D/C'd, pt tolerating PO. No other changes in assessment. family at bedside, CB in reach.
[2024-08-03] MEDS: NOVOLOG FLEXPEN-LOW RESISTANCE 2 UNITS SC (16:40)
[2024-08-03 16:49] LABS: Glucose - Point of Care 205 mg/dl (70-99)
[2024-08-03] MEDS: LANTUS 0.07 UNITS SC (19:54)
--- NOTE | 2024-08-03 20:00 | PTCARENOTE ---
Received patient AAOx3, following commands, denying pain, VILLATORO. Family at bedside. Forgetful, ASA'CARSARMIUT. Afib 130s-150s with PVCs, +1 generalized anasarca. BP 90s-110s/60s-70s. Waldrop draining yellow urine, oliguric. 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 PIVs patent, WNL.
Sheets, blankets, and pillows given. Water given, call feliciano within reach.
[2024-08-03 20:04] LABS: Glucose - Point of Care 185 mg/dl (70-99)
[2024-08-03 21:48] LABS: Glucose - Point of Care 160 mg/dl (70-99)
[2024-08-04] VITALS: BP 118/86
--- NOTE | 2024-08-04 00:21 | PTCARENOTE ---
Patient assessment unchanged from previous, call feliciano within reach.
[2024-08-04 02:00] VITALS: BP 111/76
[2024-08-04 04:00] VITALS: BP 103/70
[2024-08-04 05:05] VITALS: BMI 28.3
[2024-08-04 06:00] VITALS: BP 117/92
--- NOTE | 2024-08-04 07:45 | PTCARENOTE ---
Received patient from radiocommunications technician. patient's and daughter are at bedside. Patient states she is ready to go home, is due to go home on hospice at 1100. Assessment as charted. Will review orders and reach out to hospitalist team.
--- NOTE | 2024-08-04 07:45 | W.PN.HOSP.TC ---
Addendum entered and electronically signed by Abhijit Mclaughlin MD 08/04/24 22:14:
Attending Addendum-
I saw and evaluated the patient. I reviewed the resident�s note and agree with findings and plan as documented in the resident�s note. Sub: patient comfortable. Seen with family present. Full 12 point ROS reviewed and negative except as documented
Exam- vitals reviewed in EMR GEN-NAD pale b/l scleral icterus heart irreg irreg tachy no rub lungs decreased BS @ bases LEFT>Right abd soft LE trace edema
Plan:
# Severe AGMA
- comfort care measures
- EOL care
- poor prognosis
- DC to home with hospice
# Cardiogenic Shock
- ECHO 08/02-Severely reduced left ventricular systolic function. LVEF 10-15%.
Severe global hypokinesis with sparing of the basal inferolateral wall and the
apical anterior and inferior hernández.
- poor prognosis
- comfort care measures
# MATY on CKD 3b
- baseline @ 1.3
- cont woodward on dc
# Hyperkalemia
# Transaminitis/ Acute Liver Failure
# A fib with RVR- cont metoprolol DC amiodarone
# DM- cont insulin
# CAD s/p CABG x 5 2000
# CS s/p CEA 2002
CODE DNR
Dispo DC to home for hospice
Time spent coordinating care, DC planning, review of DC plan of care with resident, transition of care, review of records, med rec/scripts sent electronically, consults, notes, d/w consultants, nursing, family, hospice and CM� 38 mins
Original Note:
Today's Communication/Plan
-
.
Assessment / Plan
Assessment / Plan
Ms. Natalya Guillory is an 79yoF pmh HFrEF (EF 10-15%), afib on eliquis, CAD, HTN, HLD, NIDDM, CKD stage 3b admitted for metabolic acidosis.
Anion Gap Metabolic acidosis
MATY on CKD stage 3b
Uremia
Lactic acidosis
- ivf
- replete bicarb
- MATY likely due to fluid overload in setting of CKD and multiorgan system failure
- home with hospice
Anuria
- woodward catheter placed
- pt and family do not wish to pursue dialysis at this time
- improving
HFrEF exacerbation
CAD s/p CABG
- echo: EF 10-15%, severe global hypokinesis, mod to severe MR, mod TR, RV dysfunction
- volume overloaded
Afib w RVR
Hypotension
- hold eliquis
- cardiology consulted - stop dobutamine and GDMT
Abnormal coagulation profile
Transaminitis
Anemia
- hold statin
Type 2 DM
Overweight due to excess calories
- hold home metformin
- ISS low
- HbA1c 7.9
Diet: regular
DVT ppx: SCDs
Code status: DNR
Anticipated Discharge: Today
Subjective/Interval History
-
Date of Service: August 04, 2024
Ms. aNtalya Guillory is an 79yoF pmh HFrEF (EF 10-15%), afib on eliquis, CAD, HTN, HLD, NIDDM, CKD stage 3b admitted for metabolic acidosis. Pt has no concerns and is not in any pain. Plan to go home with hospice today.
Objective Data
-
Labs:
Laboratory Results
08/04/24
06:00
WBC Cancelled
Hgb Cancelled
Hct Cancelled
Plt Count Cancelled
PT Cancelled
INR Cancelled
Sodium Cancelled
Potassium Cancelled
Chloride Cancelled
Carbon Dioxide Cancelled
BUN Cancelled
Creatinine Cancelled
Glucose Cancelled
Calcium Cancelled
Total Bilirubin Cancelled
AST Cancelled
ALT Cancelled
Alkaline Phosphatase Cancelled
Vital Signs:
Vital Signs
Temp Pulse Resp BP Pulse Ox
97.9 F 131 14 103/70 100
08/03/24 21:44 08/04/24 05:00 08/04/24 05:00 08/04/24 04:00 08/04/24 05:00
I&O
08/03/24 08/04/24 08/05/24
06:59 06:59 06:59
Intake Total 3206.1 / 3357.9 1445.5 / 1445.5
Output Total 130 / 160 485 / 485
Balance 3076.1 / 3197.9 960.5 / 960.5
Review of Systems
-
History Source: Patient
Constitutional: Reports No Symptoms
EENT: Reports No Symptoms Reported
Respiratory: Reports No Symptoms
Cardiac: Reports No Symptoms
Abdomen/GI: Reports No Symptoms
Breast: Reports No Symptoms
Genitourinary: Reports No Symptoms
Musculoskeletal: Reports No Symptoms
Skin: Reports No Symptoms
Neuro: Reports No Symptoms
Endocrine: Reports No Symptoms
Hematologic / Lymphatic: Reports No Symptoms
Allergy / Immunology: Reports No Symptoms
Physical Exam
-
General: Well Developed and Well Nourished
HEENT: Normocephalic, Atraumatic, Moist Mucous Membranes and Other (scleral icterus)
Respiratory: Clear to Auscultation and Non Labored Respirations
Cardiac: S1/S2 and Irregular Rhythm; Negative Murmur, Rub or Gallop
GI: Soft, Nontender, Nondistended and Normal Bowel Sounds
Musculoskeletal: No Clubbing, No Edema and Cyanosis
Skin: Jaundice
Neuro: Awake and Alert
Psych: Calm
[2024-08-04 07:56] VITALS: BP 135/66
[2024-08-04] MEDS: NOVOLOG FLEXPEN-LOW RESISTANCE SC (08:04)
--- NOTE | 2024-08-04 08:04 | PTCARENOTE ---
Family declined accu checks. Patient to go home on hospice at 1100
--- NOTE | 2024-08-04 08:29 | W.PN.INTV ---
Today's Communication / Plan
Recommendations
Patient is going home on hospice today at 11:00 AM
Stop blood draws
Use medications only if tailored for comfort
She will likely need to go home on oxygen as well for comfort
Given that patient is going home on hospice today, [facility]/Pulmonary service will now sign off. Please call back with any additional questions or concerns.
Assessment
-
Assessment: 79-year-old female with a past medical history of CAD s/p CABG, paroxysmal A-fib on Eliquis, ischemic cardiomyopathy, hypertension, history of PVCs, bilateral carotid artery stenosis with history of endarterectomy, valvular heart
disease with MR, TR, and AI, and DM type II who presents with worsening shortness of breath for 1 week. She has been endorsing worsening fatigue, weakness and loss of appetite with reduced PO intake. Patient's been sleeping more and has been
confused for the last few weeks as per the patient's . In the ER she was tachycardic to 134 (A-fib with RVR), breathing at 18 breaths/min, BP 125/80 and saturating 100% on room air. Labs showed Hb 12.4, WBC 6.6, INR 5.92, blood gas with pH
7.09, pCO2 35, creatinine 2.9, potassium 6.4, serum bicarbonate level 8, BUN 72, glucose 214, lactate 7.4, T. bili 2.1, proBNP 14,100, troponin 0.019, and urinalysis with +1 leukocyte esterase with >100 urine WBC with >30 urine squamous epithelial
cells. Urine culture was collected. CXR showed a left-sided pleural effusion. She was given 10 units regular insulin in the ER, 1 amp of sodium bicarb, 1 amp of D50 and started on a bicarbonate drip and admitted to the ICU for further care.
[employer] [facility] services consulted for additional management/recommendations.
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
Impression:
#Rapid A-fib requiring amiodarone drip
#Acute respiratory failure with hypoxia
#Acute decompensated heart failure/acute HFrEF on dobutamine infusion
#Cardiogenic shock with worsening lactic acidosis
#Chronic anemia (baseline Hb: 9�11g/dL)
#Elevated INR in the setting of Eliquis use
#Metabolic acidosis with increased anion gap due to lactic acidosis and MATY
#Severe MATY with hyperkalemia due to cardiorenal syndrome
#Lactic acidosis due to cardiogenic shock
#Mild irregular circumferential wall thickening in the rectum suspicious for a mild proctitis (less likely rectal adenocarcinoma) - seen on CT A/P from 08/02/2024
#DM type II complicated by hyperglycemia
#Hypochloremic, hyponatremia
#Transaminitis with hyperbilirubinemia
#Abnormal TFTs with elevated TSH
Plan:
- Patient is in severe MATY and was recommended for dialysis which she refused
- On 08/02 after further discussion, the patient decided that she is not interested in dialysis and understands that without dialysis that her acidosis will likely continue to worsen; she has met with hospice and is awaiting home hospice today
(08/04)
- She was continued on dobutamine for her acute HFrEF with cardiogenic shock and is also on amiodarone for her rapid A-fib --> both these drips were stopped yesterday
- Patient is going home on hospice today; no longer need to continue trending lactate or checking any other blood work
- Echo repeated on 08/02/2024 and showed worsening LVEF now at 10-15% with severe global hypokinesis with moderately reduced RV systolic function, moderate�severe MR and moderate TR; compared to prior echo in November 2023, biventricular function is
now significantly worse and there are new wall motion abnormalities. This is concerning for acute coronary syndrome, however this is a moot point as she is awaiting home hospice on 08/04. On 08/02, discussion held between myself and cardiology and
given the low LVEF with multiorgan failure, we started trial of inotropic therapy with dobutamine to see if this improves her renal function and shortness of breath
- Her INR is elevated and she is s/p vitamin K 10mg IV x1 on 08/02; INR is likely elevated from multifactorial reasons from reduced PO intake in the setting of Eliquis use --> she is not currently bleeding so no need to give FFP or PCC
- Fibrinogen level is low --> she could be developing DIC
- BG are elevated >400 --> insulin gtt started with hyperglycemia protocol, however given that she is now going on home hospice today, insulin drip was stopped yesterday
- Stopped bicarb gtt given her serum bicarbonate level yesterday was 31
- Maintain SpO2 >90-94% with supplemental O2 as needed
- Maintain MAP>65
- Goal heart rate <110
- On CT abdomen/pelvis she has mild irregular circumferential wall thickening in the rectum suspicious for mild proctitis --> this could also very well be due to hypoperfusion; patient had no leukocytosis and remains afebrile; continue to monitor
- prn nebulized bronchodilators - not currently bronchospastic
- DVT ppx: SCDs only given her INR was >5
- Guarded prognosis: DNR/DNI; patient/family has met with hospice and patient is going home on hospice today
Given that patient is going home on hospice today, [employer] [facility]/Pulmonary service will now sign off. Thank you for allowing us to be involved in the care of this patient. Please call back with any additional questions or concerns.
Data:
Transthoracic echocardiogram 08/02/2024:
Severely reduced left ventricular systolic function. LVEF 10-15%.
Severe global hypokinesis with sparing of the basal inferolateral wall and the
apical anterior and inferior hernández.
Moderately reduced right ventricular systolic function.
Biatrial enlargement.
Moderate to severe mitral regurgitation.
Moderate tricuspid regurgitation. Normal PASP (25-30 mmHg) but may be
underestimated in the setting of RV dysfunction.
Compared to prior echocardiogram on 12/03/2023, biventricular function is
significantly worse and there are new wall motion abnormalities. Valvular
regurgitation is stable to mildly improved though this may be due to worse LV
systolic function.
CT chest/abdomen/pelvis without contrast 08/02/24:
1. MODERATE-SIZED LEFT PLEURAL EFFUSION and small right pleural effusion with adjacent compressive subsegmental atelectasis in the basilar segments of the lower lobes (left greater than right).
2. Moderate cardiomegaly with biatrial enlargement.
3. Previous CABG surgery.
4. Severe calcific atherosclerotic disease.
5. No CT evidence for acute interstitial or alveolar pulmonary edema.
ABDOMEN and PELVIS:
1. Small volume of abdominal ascites.
2. Moderate chronic bilateral renal disease.
3. Severe calcific atherosclerotic plaque in the abdominal aorta and visceral arteries.
4. Severe diverticulosis in the descending and sigmoid colon.
5. Mild irregular circumferential wall thickening in the rectum suspicious for a mild proctitis (less likely rectal adenocarcinoma).
6. Small hiatal hernia.
7. MODERATE ANASARCA.
8. 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
Total time spent today was 42 minutes for this encounter. Time includes reviewing laboratory test/imaging results, reviewing pertinent medical records, obtaining and reviewing medical history, performing an appropriate exam, ordering medications,
tests and procedures. Time also includes documentation of this encounter, coordinating patient care and communicating with other healthcare professionals. Total time does not include separately billed tests performed on this date of service.
Subjective Dataa
Subjective Data
Date of Service:
Date of Service: August 04, 2024
Chief Complaint: [facility] Follow Up
Subjective:
Patient was seen and evaluated this morning. No acute events reported overnight. She is going home today at 11:00 for home hospice. Currently denies chest pain, BENAVIDEZ, SOB at rest, fevers or chills.
Review of Systems
General: Other (Negative unless mentioned above)
Objective Data
Data Reviewed
Vital Signs / I&O / Oxygen:
Vital Signs
Temp Pulse Resp BP Pulse Ox
97.6 F 151 19 135/66 97
08/04/24 07:50 08/04/24 07:44 08/04/24 07:44 08/04/24 07:56 08/04/24 07:30
Intake and Output
08/03/24 08/04/24 08/05/24
06:59 06:59 06:59
Intake Total 3206.1 / 3357.9 1445.5 / 1445.5
Output Total 130 / 160 485 / 485
Balance 3076.1 / 3197.9 960.5 / 960.5
SaO2 97
Nasal Cannula flow liters per 2
minute
Physical Exam
General: Respiratory Distress (negative), Comfortable, Chills (negative) and Sweats (negative)
HEENT: Normocephalic and Anicteric
Cardiovascular: Irregular Rhythm (Irregularly irregular), Peripheral Edema (negative) and Other (Tachycardic)
Respiratory: Wheeze (negative), Crackles (Bilaterally), Rhonchi (negative), Non-Labored Respirations and Stridor (negative)
GI: Soft, Non Distended, Non Tender and Normal Bowel Sounds
Neurology: Awake, Alert and Tremors (negative)
Skin: Warm, Dry, Cyanosis (negative) and Jaundice (negative)
Labs/Micro/Reports
Lab Data
08/04/24 06:00
08/04/24 06:00
Laboratory Results
08/04/24
06:00
PT Cancelled
INR Cancelled
Microbiology
08/02/24 08:34 Urine Urine Culture - Final
Escherichia coli
08/03/24 04:55 Blood/Venous Blood Culture - Preliminary
No Growth in 24 hours- Final report to follow
--- NOTE | 2024-08-04 08:55 | W.DCSUMMARY ---
Addendum entered and electronically signed by Abhijit Mclaughlin MD 08/04/24 22:15:
Read, reviewed, and agree. See same day progress note for additional details.
Roberto Mclaughlin MD
Original Note:
Documented by User: Emily Lombardi DO, Resident 08/04/24 15:14
Discharge Summary
Discharge Data
Date of Admission: 08/01/24
Date of Discharge: 08/04/24
-
Pending Results: No
Hospital Course
Discharging Physician : Dr. Emily Lombardi, Dr. Roberto Mclaughlin
Disposition : home with hospice
Primary care physician : Dr. Kathrine Vogt
Principal Discharge diagnosis : Metabolic acidosis with multi-system organ failure
Chronic Discharge diagnosis : HFrEF, afib, CAD, HTN, HLD, NIDDM, CKD stage 3b
Hospital Course : 79yoF pmh HFrEF (EF 40%), afib on eliquis, CAD, HTN, HLD, NIDDM admitted for metabolic acidosis. She was dyspneic for the past couple of weeks, but worsening with fatigue, weakness, and loss of appetite. Per her , pt slep
more and was confused over the past couple of weeks compared to baseline. Found to be in metabolic acidosis without adequate respiratory alkalosis. Lactate elevated and continued to rise. Home metformin was held. Pt's acidosis improved on a
bicarbonate drip. Pt upgraded to ICU status and placed on amiodarone, dobutamine, and insulin drips. CT CAP performed, transaminitis worsened, kidney function worsened to the point of needing dialysis, and echo showed a markedly reduced LVEF of
10-15%. Presented with this information, pt and her family decided to pursue hospice as she does not want life saving measures or to be a burden to her family. Pt and family wished to remain on drips while home hospice was set up. The dobutamine,
amiodarone, bicarbonate, and insulin drips were stopped prior to discharge.
Important imaging findings :
CXR: Small left pleural effusion
CT CAP:
CHEST:
1. MODERATE-SIZED LEFT PLEURAL EFFUSION and small right pleural effusion with adjacent compressive subsegmental atelectasis in the basilar segments of the lower lobes (left greater than right).
2. Moderate cardiomegaly with biatrial enlargement.
3. Previous CABG surgery.
4. Severe calcific atherosclerotic disease.
5. No CT evidence for acute interstitial or alveolar pulmonary edema.
ABDOMEN and PELVIS:
1. Small volume of abdominal ascites.
2. Moderate chronic bilateral renal disease.
3. Severe calcific atherosclerotic plaque in the abdominal aorta and visceral arteries.
4. Severe diverticulosis in the descending and sigmoid colon.
5. Mild irregular circumferential wall thickening in the rectum suspicious for a mild proctitis (less likely rectal adenocarcinoma).
6. Small hiatal hernia.
7. MODERATE ANASARCA.
8. 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
ECHO:
Severely reduced left ventricular systolic function. LVEF 10-15%.
Severe global hypokinesis with sparing of the basal inferolateral wall and the
apical anterior and inferior hernández.
Moderately reduced right ventricular systolic function.
Biatrial enlargement.
Moderate to severe mitral regurgitation.
Moderate tricuspid regurgitation. Normal PASP (25-30 mmHg) but may be
underestimated in the setting of RV dysfunction
Procedure findings : n/a
Discharge Plan
-
Patient Disposition: Home with Hospice
Discharge Diagnosis/Procedures: Metabolic acidosis, hyperkalemia, transaminitis, HFrEF, uremia, lactic acidosis, anuria, respiratory alkalosis, afib w RVR, hypotension, abnormal coagulation profile, anemia, Type 2 DM, macrocytosis, hyponatremia
Condition: Serious
Diet: As tolerated
Activity: As tolerated
Driving Restrictions: No driving
Bathing Restrictions: None
Other Services: Hospice
Instructions: Medical care during advanced illness, Getting the Care You Need
Referrals:
Kathrine Vogt MD [Family Provider] -
Prescriptions:
Discontinued
metoprolol succinate 100 MG tablet extended release 24 hr
100 mg PO Q12
Eliquis 5 MG tablet
5 mg PO Q12
atorvastatin [Lipitor] 20 mg Tablet
20 mg PO QPM
metformin 500 mg Tablet Extended Release 24 Hr
1,000 mg PO HS
Discharge Orders:
Discharge Patient (As Directed); Ordered 08/04/24
Ordered By: Emily Lombardi
Discharge Date and Time
Discharge Date/Time: 08/04/24 11:50
Print Language: DANISH

Documented by User: Abhijit Mclaughlin MD 08/04/24 22:11
Discharge Summary
Discharge Data
Date of Admission: 08/01/24
Date of Discharge: 08/04/24
Discharge Plan
-
Patient Disposition: Home with Hospice
Discharge Diagnosis/Procedures: Metabolic acidosis, hyperkalemia, transaminitis, HFrEF, uremia, lactic acidosis, anuria, respiratory alkalosis, afib w RVR, hypotension, abnormal coagulation profile, anemia, Type 2 DM, macrocytosis, hyponatremia
Condition: Serious
Diet: As tolerated
Activity: As tolerated
Driving Restrictions: No driving
Bathing Restrictions: None
Other Services: Hospice
Instructions: Medical care during advanced illness, Getting the Care You Need
Referrals:
Kathrine Vogt MD [Family Provider] -
Prescriptions:
Discontinued
metoprolol succinate 100 MG tablet extended release 24 hr
100 mg PO Q12
Eliquis 5 MG tablet
5 mg PO Q12
atorvastatin [Lipitor] 20 mg Tablet
20 mg PO QPM
metformin 500 mg Tablet Extended Release 24 Hr
1,000 mg PO HS
Discharge Orders:
Discharge Patient (As Directed); Ordered 08/04/24
Ordered By: Emily Lombardi
Discharge Date and Time
Discharge Date/Time: 08/04/24 11:50
Print Language: DANISH
--- NOTE | 2024-08-04 10:09 | CM ---
CM following re: discharge planning.
Discussed in Rounds, reviewed pt's chart, met with pt. Pt's daughter at bedside.
Per [facility], transportation arranged for 11:00 a.m. sheepskin pickler time. [facility]NC and Out of hospital DNR on chart.
IMM reviewed yesterday, placed on chart, pt has a copy.
D/C plan: home with hospice and family support.
--- NOTE | 2024-08-04 11:59 | PTCARENOTE ---
Patient picked up by EMS transport to home
== END 2024-08-04 11:50 | disposition hospice, home (50) | DRG 640 ==
LOC: ICU 17:37
PROVIDERS: Physician Assistant; Registered Nurse; Student in an Organized Health Care Education/Training Program; ADMITTING PHYSICIAN Family Medicine; CONSULT PHYSICIAN Internal Medicine Critical Care Medicine; CONSULT PHYSICIAN Internal Medicine Nephrology; CONSULT PHYSICIAN Student in an Organized Health Care Education/Training Program; EMERGENCY PHYSICIAN Emergency Medicine; FAMILY PHYSICIAN Family Medicine
DX: E87.4 Mixed disorder of acid-base balance (principal); I50.23 Acute on chronic systolic (congestive) heart failure; R57.0 Cardiogenic shock; J96.01 Acute respiratory failure with hypoxia; N17.9 Acute kidney failure, unspecified; I13.0 Hypertensive heart and chronic kidney disease with heart failure and stage 1 through stage 4 chronic kidney disease, or unspecified chronic kidney disease; I48.0 Paroxysmal atrial fibrillation; I25.10 Atherosclerotic heart disease of native coronary artery without angina pectoris; E78.00 Pure hypercholesterolemia, unspecified; E11.22 Type 2 diabetes mellitus with diabetic chronic kidney disease; I08.1 Rheumatic disorders of both mitral and tricuspid valves; N18.32 Chronic kidney disease, stage 3b; E87.1 Hypo-osmolality and hyponatremia; E87.5 Hyperkalemia; D64.9 Anemia, unspecified; I25.5 Ischemic cardiomyopathy; Z79.84 Long term (current) use of oral hypoglycemic drugs; Z79.01 Long term (current) use of anticoagulants
CPT/HCPCS: 71046; 71250; 74176; 80048; 80053; 80143; 80179; 81003; 81015; 82010; 82248; 82550; 82570; 82607; 82746; 82805; 82947; 82962; 82977; 83036; 83605; 83735; 83880; 84100; 84132; 84156; 84300; 84439; 84443; 84484; 85025; 85027; 85384; 85610; 85730; 86704; 86706; 86708; 86803; 87040; 87086; 87088; 87186; 87340; 93005; 93306; 96374; 96375; 99291